=== PATIENT | female | born 1965 | race Caucasian/White ===

== ENCOUNTER 2018-06-20 13:34 | Observation (INO) | payer OTHER ==
--- NOTE | 2018-06-20 14:54 | ED ---
Chest Pain HPI - General Chief Complaint: Chest Pain Stated Complaint: Chest Pain Time Seen by Provider: 06/20/18 14:25 Source: patient, RN notes reviewed Mode of arrival: wheelchair Limitations: no limitations - History of Present Illness Initial Comments: This is a 53-year-old female who presents to the emergency department chief complaint chest pain. Patient states that she's been experiencing chest pain since last Tuesday. She states that she felt the chest pain when she became very upset. Patient states that she has had chest pain in the past and was told to follow-up with a jack machine operator but has yet to do so. She states that when she was going to follow-up, "it blew up in my house." She states that she has been dealing with life stressors generalized. Patient reports that the chest pain begins in the left side of her back and wraps around. She states that at first it was intermittent but has now become steady. She describes the pain as sharp. She also admits to associated shortness of breath. Patient is a current, every day smoker. She states that she has also felt nauseous. Denies abdominal pain, vomiting, diarrhea or constipation, dysuria or hematuria. - Related Data Home Medications Medication Instructions Recorded Confirmed FLUoxetine HCL [PROzac] 60 mg PO DAILY 09/19/15 06/20/18 Hydrochlorothiazide 25 mg PO DAILY 09/19/15 06/20/18 Lisinopril [Zestril] 10 mg PO DAILY 09/19/15 06/20/18 Potassium Chloride [Klor-Con 10 meq PO DAILY 09/19/15 06/20/18 Sprinkle] ALPRAZolam [Xanax] 0.25 mg PO Q6HR PRN 06/20/18 06/20/18 Folic Acid 1 mg PO DAILY 06/20/18 06/20/18 Gabapentin [Neurontin] 300 mg PO HS 06/20/18 06/20/18 Morphine Sulfate 15 mg PO QID PRN 06/20/18 06/20/18 Nitroglycerin 0.4 mg SL Q5M PRN 06/20/18 06/20/18 rOPINIRole HCL 0.5 mg PO BID 06/20/18 06/20/18 Allergies Allergy/AdvReac Type Severity Reaction Status Date / Time Penicillins AdvReac Unknown Verified 07/31/18 15:18 Review of Systems ROS Statement: Those systems with pertinent positive or pertinent negative responses have been documented in the HPI. ROS Other: All systems not noted in ROS Statement are negative. EKG Findings - EKG Comments: EKG Findings:: 14:21:58. Normal sinus rhythm. ST and T wave abnormality, consider anterolateral ischemia. Prolonged QT. Ventricular rate 90 bpm, OK interval 208, QRS duration 80, QT/QTC 380/464 Past Medical History Past Medical History: Hypertension, Thyroid Disorder History of Any Multi-Drug Resistant Organisms: None Reported Past Surgical History: Cholecystectomy Past Psychological History: Depression Smoking Status: Current every day smoker Past Alcohol Use History: None Reported Past Drug Use History: None Reported General Exam - General Exam Comments Initial Comments: General: Awake and alert, well-developed; in no apparent distress. Morbidly obese, disheveled female who looks older than stated age lying comfortably on ED stretcher. HEENT: Head atraumatic, normocephalic. Pupils are equal, round and reactive to light. Extraocular movements intact. Oropharynx moist without erythema or exudate. Neck: Supple. Normal ROM. Cardiovascular: Regular rate and rhythm. No murmurs, rubs or gallops. Chest symmetrical. Respiratory: Wheezes noted left lung base. No rhonchi or rales. Normal respiratory effort with no use of accessory muscles. Abdomen: Soft, non-tender, non-distended. No rigidity, rebound or guarding. Normal bowel sounds in all 4 quadrants. Musculoskeletal: Normal ROM, no tenderness bilateral upper and lower extremities. Skin: Sena, warm and dry without rashes or lesions. Neurological: Alert and oriented x3. CN II-XII grossly intact. Speech is fluent and answers are appropriate. No focal neuro deficits. Psychiatric: Normal mood and affect. No overt signs of depression or anxiety noted. Limitations: no limitations Course Vital Signs 06/20/18 06/20/18 13:36 15:47 Temperature 97.7 F Pulse Rate 89 88 Respiratory 20 20 Rate Blood Pressure 130/83 153/72 O2 Sat by Pulse 97 94 L Oximetry Chest Pain MDM - MDM This is a 53-year-old female who presents to the emergency department with chief complaint of chest pain. Patient reports chest pain for the past 6 days. She states that it comes and goes but has become more steady. EKG revealed normal sinus rhythm with ischemic changes noted. There is T-wave inversion in V1 through V3 and ST segment depression in V4 through V6. This is new compared to EKG in 2015. Patient will be admitted for ischemic changes, unstable angina. Troponin is negative at 0.018. CBC unremarkable. Potassium is decreased to 3.3. Patient given oral supplementation. Chest x-ray revealed no acute cardiopulmonary processes. It did reveal evidence for COPD. Patient will be admitted for new acute ischemic EKG changes and chest pain. She'll be admitted to Dr. Baker with consult to Dr. Shrestha. Echocardiogram is ordered. Patient started on low intensity heparin. Patient is in agreement for admission. She is in no acute distress. Chest x-ray impression: No acute process. Correlate for COPD. Disposition Clinical Impression: Chest pain, Acute electrocardiogram changes Disposition: ADMITTED IP TO THIS HOSP Condition: Good Is patient prescribed a controlled substance at d/c from ED?: No Referrals: Dustin Quevedo MD [Primary Care Provider] - 1-2 days Time of Disposition: 16:19
[2018-06-20 14:58] LABS: Basophils % (A) 0 %; Eosinophils % (A) 0 %; HCT 46.4 % (34.0-46.0); HGB 15.6 gm/dL (11.4-16.0); Lymphocytes % (A) 16 %; MCH 31.9 pg (25.0-35.0); MCHC 33.5 g/dL (31.0-37.0); MCV 95.1 fL (80.0-100.0); Mean Platelet Volume 7.1; Monocytes # (A) 0.3 k/uL (0-1.0); Monocytes % (A) 4 %; Neutrophils # (A) 4.9 k/uL (1.3-7.7); Neutrophils % (A) 78 %; Platelet Count 246 k/uL (150-450); RBC 4.88 m/uL (3.80-5.40); RDW 13.4 % (11.5-15.5); WBC 6.2 k/uL (3.8-10.6)
[2018-06-20 15:07] LABS: Albumin 4.1 g/dL (3.5-5.0); Calcium 10.2 mg/dL (8.4-10.2); Magnesium 1.4 mg/dL (1.6-2.3); Potassium 3.2 mmol/L (3.5-5.1); Total Bilirubin 0.6 mg/dL (0.2-1.3); Total Protein 7.2 g/dL (6.3-8.2)
--- NOTE | 2018-06-20 15:17 | XR ---
EXAMINATION TYPE: XR chest 2V DATE OF EXAM: 06/20/2018 COMPARISON: 09/19/2015 TECHNIQUE: PA and lateral views submitted. HISTORY: Chest pain FINDINGS: The lungs are clear and there is no pneumothorax, pleural effusion, or focal pneumonia. Cardiomegal y noted. Hyperinflation suggests COPD. Hypertrophic and degenerative change of the spine. No overt fa ilure. Chronic appearing rib deformities on the right. IMPRESSION: 1. No acute process. Correlate for COPD.
[2018-06-20 15:21] LABS: Partial Thromboplastin Time 23.7 sec (22.0-30.0)
[2018-06-20 15:30] LABS: Creatine Kinase MB 1.3 ng/mL (0.0-2.4); Troponin I 0.018 ng/mL (0.000-0.034)
[2018-06-20] MEDS ORDERED: POTASSIUM CHLORIDE ER 20 MEQ TAB.ER PO STA (15:37)
[2018-06-20] MEDS ORDERED: HEPARIN SODIUM,PORCINE 5,000 UNIT/ML 1 ML VIAL IV PRN (16:03)
[2018-06-20] MEDS ORDERED: HEPARIN SODIUM,PORCINE 5,000 UNIT/ML 1 ML VIAL IV ONE (16:03)
[2018-06-20] MEDS ORDERED: NITROGLYCERIN SL TABS 0.4 MG TAB SUBLINGUAL PRN (16:04)
[2018-06-20] MEDS ORDERED: HEPARIN SOD,PORK IN 0.45% NACL 25,000 UNIT in 0.45% NACL 1 500ML.BAG IV SCH (16:15)
[2018-06-20] MEDS ORDERED: MORPHINE SULFATE 2 MG/ML SYRINGE IVP STA (16:16)
[2018-06-20] MEDS ORDERED: NITROGLYCERIN SL TABS 0.4 MG TAB SUBLINGUAL STA (16:16)
[2018-06-20] MEDS: SODIUM CHLORIDE 0.9% 1,000 ML IV SCH (16:20)
--- NOTE | 2018-06-20 17:31 | CT ---
EXAMINATION TYPE: CT angio chest DATE OF EXAM: 06/20/2018 COMPARISON: NONE HISTORY: chest pain CT DLP: 793.7 mGycm. Automated Exposure Control for Dose Reduction was Utilized. CONTRAST: CTA scan of the thorax is performed with IV Contrast, patient injected with 100 mL of Isovue 370, pul monary embolism protocol. MIP Images are created on CT scanner and reviewed. FINDINGS: LUNGS: There is mild background centrilobular and paraseptal emphysematous change. Respiratory artifa ct is seen at the lung bases limiting evaluation for pulmonary nodule. No pneumothorax or pleural eff usion is identified. No discrete pulmonary mass. Te lungs are grossly clear, there is no concerning p arenchymal mass or nodule identified. There is no pleural effusion or pneumothorax seen. The trach eobronchial tree is patent. MEDIASTINUM: There is satisfactory enhancement of the main, segmental, and proximal subsegmental pulm onary arteries, there is no CT evidence for pulmonary embolism within these vessels. There is limitat ion of the more distal subsegmental pulmonary arteries due to mixing of contrast. There is no evidenc e of right heart strain There are no greater than 1 cm hilar or mediastinal lymph nodes. No cardiom egaly or pericardial effusion is seen. Ascending thoracic aorta is within normal limits of size measu ring 3.5 cm. OTHER: Cholecystectomy clips are noted within the gallbladder fossa. Generalized low attenuation of t he visualized hepatic parenchyma suggests underlying hepatic steatosis. Old healed right posterior ri b fractures are well-healed. Moderate multilevel degenerative change of the spine IMPRESSION: 1. No evidence of pulmonary embolism. There is slight limitation of the distal aspect of the subsegme ntal pulmonary arteries due to mixing of contrast. 2. Mild background centrilobular and paraseptal emphysema. 3. Old healed posterior right rib fractures.
[2018-06-20] MEDS: MAGNESIUM SULFATE-D5W PMX 1 GM in DEXTROSE/WATER 1 100ML.BAG IVPB SCH ×2 (21:04→22:24)
[2018-06-20] MEDS ORDERED: ALPRAZolam 0.25 MG TAB PO PRN (21:20)
[2018-06-20] MEDS: MORPHINE SULFATE IR 15 MG TABLET PO PRN (22:25)
[2018-06-20] MEDS: GABAPENTIN 300 MG CAP PO SCH (22:25)
[2018-06-20 22:36] LABS: Creatine Kinase MB 1.4 ng/mL (0.0-2.4); Troponin I 0.021 ng/mL (0.000-0.034)
[2018-06-21] MEDS: SODIUM CHLORIDE 0.9% 1,000 ML IV SCH ×2 (06:18→09:30)
[2018-06-21 06:53] LABS: Basophils % (A) 0 %; Eosinophils % (A) 0 %; HCT 40.9 % (34.0-46.0); HGB 13.5 gm/dL (11.4-16.0); Lymphocytes # (A) 1.9 k/uL (1.0-4.8); Lymphocytes % (A) 31 %; MCH 30.9 pg (25.0-35.0); MCV 93.8 fL (80.0-100.0); Mean Platelet Volume 7.6; Monocytes # (A) 0.5 k/uL (0-1.0); Monocytes % (A) 9 %; Neutrophils # (A) 3.4 k/uL (1.3-7.7); Neutrophils % (A) 56 %; Platelet Count 208 k/uL (150-450); RBC 4.37 m/uL (3.80-5.40); RDW 13.3 % (11.5-15.5)
--- NOTE | 2018-06-21 08:45 | P.CRDCN ---
History of Present Illness Consult date: 06/21/18 Requesting physician: Vanessa Baker Consult reason: chest pain Chief complaint: Chest pain History of present illness: This is a pleasant 53-year-old female with history of hypertension, obesity, nicotine dependence, COPD, who presents to the hospital with symptoms of chest discomfort. According to the patient she's been under a considerable amount of stress at home, she states she's been experiencing chest heaviness and also sharp chest pains seeded shortness of breath and diaphoresis for over a week off and on. She states that mostly a stressful situation seemed to bring it on. She denies any diabetes or hyperlipidemia, she does have a family history of premature coronary artery disease and her sister is status post coronary artery bypass grafting surgery. EKG on arrival here showed a normal sinus rhythm with ST-T wave changes noted in the anterior lateral leads, subsequent EKG performed this morning shows normal sinus rhythm with ST-T wave changes noted primarily in the anterior leads. Chest x-ray on admission did not reveal any acute process, COPD is suggested. CTA of the chest was performed which did not reveal any evidence of a pulmonary embolism. Old healed posterior right rib fractures noted. Blood pressure on admission 130/80 , heart rate in the 80s, 97% on room air. Laboratory data White blood cell count 6.0, hemoglobin 13.5, platelet count 208. D-dimer 1.63. Sodium 132, potassium 3.0, BUN 9, creatinine 0.9. Magnesium on admission 1.4, 2.0 this morning. Initial troponin 0.018, subsequent troponin 0.021. At the time of my examination this morning, patient complains of back discomfort, she denies any further chest discomfort. 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 History of Any Multi-Drug Resistant Organisms: None Reported Past Surgical History: Cholecystectomy Past Psychological History: Depression Smoking Status: Current every day smoker Past Alcohol Use History: None Reported Past Drug Use History: None Reported Medications and Allergies Home Medications Medication Instructions Recorded Confirmed Type FLUoxetine HCL [PROzac] 60 mg PO DAILY 09/19/15 06/20/18 History Hydrochlorothiazide 25 mg PO DAILY 09/19/15 06/20/18 History Lisinopril [Zestril] 10 mg PO DAILY 09/19/15 06/20/18 History Potassium Chloride [Klor-Con 10 meq PO DAILY 09/19/15 06/20/18 History Sprinkle] ALPRAZolam [Xanax] 0.25 mg PO Q6HR PRN 06/20/18 06/20/18 History Folic Acid 1 mg PO DAILY 06/20/18 06/20/18 History Gabapentin [Neurontin] 300 mg PO HS 06/20/18 06/20/18 History Morphine Sulfate 15 mg PO QID PRN 06/20/18 06/20/18 History Nitroglycerin 0.4 mg SL Q5M PRN 06/20/18 06/20/18 History rOPINIRole HCL 0.5 mg PO BID 06/20/18 06/20/18 History Allergies Allergy/AdvReac Type Severity Reaction Status Date / Time Penicillins AdvReac Unknown Verified 06/20/18 15:18 Physical Exam Vitals: Vital Signs Temp Pulse Pulse Resp BP BP Pulse Ox 06/21/18 04:00 98.2 F 74 18 100/55 94 L 06/21/18 00:00 98.3 F 79 20 110/63 94 L 06/20/18 20:00 97.4 F L 91 22 149/89 96 06/20/18 17:53 98.2 F 90 22 179/81 95 06/20/18 16:25 105 H 22 149/86 93 L 06/20/18 15:47 88 20 153/72 94 L 06/20/18 13:36 97.7 F 89 20 130/83 97 Intake and Output 06/20/18 06/21/18 06/21/18 22:59 06:59 14:59 Intake Total 117.667 750 Balance 117.667 750 Intake: IV 750 Sodium Chloride 0.9% 1, 750 000 ml @ 75 mls/hr IV . [id number] MEET Rx#:[id number] Intake, IV Titration 117.667 Amount Heparin Sod,Pork in 0.45% 117.667 NaCl 25,000 unit In 0.45 % NaCl 1 500ml.bag @ 5.88 UNITS/KG/HR 20 mls/hr IV .Q24H MEET Rx#:[id number] Other: Voiding Method Toilet Toilet Bedside Commode # Voids 0 Weight 164.9 kg 165 kg PHYSICAL EXAMINATION: GENERAL: 53-year-old disheveled female in no acute distress at the time of my examination HEENT: Head is atraumatic, normocephalic. Several broken teeth noted Pupils equal, round. Sclera anicteric. Conjunctiva are clear. Mucous membranes of the mouth are moist. Neck is supple. There is no elevated jugular venous pressure. No carotid bruit is heard. HEART EXAMINATION: Heart S1-S2 distant CHEST EXAMINATION:'s reveal scattered coarse wheezing throughout with decreased air exchange ABDOMEN: Soft, obese, nontender. Bowel sounds are heard. No organomegaly noted. EXTREMITIES: 2+ peripheral pulses with no evidence of peripheral edema and no calf tenderness noted. NEUROLOGIC patient is awake, alert and oriented X3 . Results 06/21/18 06:19 06/21/18 06:19 Cardiac Enzymes 06/20/18 06/20/18 06/20/18 Range/Units 14:46 14:46 21:24 AST 27 (14-36) U/L CK-MB (CK-2) 1.3 1.4 (0.0-2.4) ng/mL Troponin I 0.018 0.021 (0.000-0.034) ng/mL Coagulation 06/20/18 06/20/18 06/21/18 Range/Units 14:46 21:24 06:19 PT 10.0 (9.0-12.0) sec APTT 23.7 28.0 39.7 H (22.0-30.0) sec Lipids 06/21/18 Range/Units 06:19 Triglycerides 84 (<150) mg/dL Cholesterol 132 (<200) mg/dL HDL Cholesterol 78 H (40-60) mg/dL CBC 06/20/18 06/21/18 Range/Units 14:46 06:19 WBC 6.2 6.0 (3.8-10.6) k/uL RBC 4.88 4.37 (3.80-5.40) m/uL Hgb 15.6 13.5 (11.4-16.0) gm/dL Hct 46.4 H 40.9 (34.0-46.0) % Plt Count 246 208 (150-450) k/uL Comprehensive Metabolic Panel 06/20/18 06/21/18 Range/Units 14:46 06:19 Sodium 132 L (137-145) mmol/L Potassium 3.2 L 3.0 L* (3.5-5.1) mmol/L Chloride 93 L (98-107) mmol/L Carbon Dioxide 30 (22-30) mmol/L BUN 9 (7-17) mg/dL Creatinine 0.91 (0.52-1.04) mg/dL Glucose 121 H (74-99) mg/dL Calcium 10.2 (8.4-10.2) mg/dL AST 27 (14-36) U/L ALT 23 (9-52) U/L Alkaline Phosphatase 94 (38-126) U/L Total Protein 7.2 (6.3-8.2) g/dL Albumin 4.1 (3.5-5.0) g/dL Current Medications Generic Name Dose Route Start Last Admin Trade Name Freq PRN Reason Stop Dose Admin Alprazolam 0.25 mg 06/20/18 21:20 Xanax PO Q6HR PRN Anxiety Aspirin 325 mg 06/21/18 09:00 Aspirin PO DAILY [facility] Fluoxetine HCl 60 mg 06/21/18 09:00 Prozac PO DAILY [facility] Folic Acid 1 mg 06/21/18 12:00 Folic Acid PO 1200 [facility] Gabapentin 300 mg 06/20/18 21:30 06/20/18 22:25 Neurontin PO 300 mg HS MEET Administration Heparin Sodium (Porcine) 0 unit 06/20/18 16:03 Heparin IV PER PROTOCOL PRN Low PTT Protocol Hydrochlorothiazide 25 mg 06/21/18 09:00 Hydrodiuril PO DAILY [facility] Heparin Sodium/Sodium Chloride 500 mls @ 20 mls/hr 06/20/18 16:15 06/20/18 22 :27 25,000 unit/ Sodium Chloride IV 8.88 units/kg/hr .Q24H MEET 30.2 mls/hr Titration Protocol 5.88 UNITS/KG/HR Sodium Chloride 1,000 mls @ 75 mls/hr 06/20/18 16:15 06/21/18 06:18 Saline 0.9% IV Not Given .[id number] [facility] Lisinopril 10 mg 06/21/18 09:00 Zestril PO DAILY [facility] Morphine Sulfate 15 mg 06/20/18 21:20 06/20/18 22:25 Msir PO 15 mg QID PRN Administration Pain Nitroglycerin 0.4 mg 06/20/18 16:04 Nitrostat SUBLINGUAL Q5M PRN Chest Pain Ropinirole HCl 0.5 mg 06/20/18 21:30 06/20/18 22:25 Requip PO 0.5 mg BID MEET Administration Intake and Output 06/20/18 06/21/18 06/21/18 22:59 06:59 14:59 Intake Total 117.667 750 Balance 117.667 750 Intake: IV 750 Sodium Chloride 0.9% 1, 750 000 ml @ 75 mls/hr IV . [id number] MEET Rx#:[id number] Intake, IV Titration 117.667 Amount Heparin Sod,Pork in 0.45% 117.667 NaCl 25,000 unit In 0.45 % NaCl 1 500ml.bag @ 5.88 UNITS/KG/HR 20 mls/hr IV .Q24H MEET Rx#:[id number] Other: Voiding Method Toilet Toilet Bedside Commode # Voids 0 Weight 164.9 kg 165 kg 06/21/18 06:19 06/21/18 06:19 EKG Interpretations (text) EKG shows a normal sinus rhythm with ST-T wave changes noted in the anterior lateral leads. Assessment and Plan Plan: Assessment and plan #1 chest discomfort, rule out acute coronary syndrome. Initial troponin 0.018, subsequent troponin 0.0-1. EKG shows a normal sinus rhythm with anterior lateral ST-T wave changes. CTA of the chest negative for pulmonary embolism #2 hypertension #3 nicotine dependence #4 COPD #5 family history of premature coronary artery disease in her sister who had coronary artery bypass grafting surgery #6 hypokalemia #7 hypomagnesemia Plan We will obtain an echocardiogram with Doppler study, replace potassium. Obtain third troponin value. Patient has also been advised that she may need to undergo further testing to rule out underlying coronary artery disease. Further recommendations to follow. DNP note has been reviewed, I agree with a documented findings and plan of care. Patient was seen and examined.
--- NOTE | 2018-06-21 09:12 | ECHOF ---
Referral Reason:chest pain MEASUREMENTS -------- HEIGHT: 182.9 cm WEIGHT: 170.1 kg BP: 153/72 IVSd: 1.2 cm (0.6 - 1.1) LVIDd: 4.1 cm (3.9 - 5.3) LVPWd: 1.2 cm (0.6 - 1.1) IVSs: 1.5 cm LVIDs: 2.5 cm LVPWs: 1.4 cm MV E Torrey: 0.66 m/s MV DecT: 334 ms MV A Torrey: 0.90 m/s MV E/A Ratio: 0.74 FINDINGS -------- Sinus rhythm. This was a technically difficult study with suboptimal views. The left ventricular size is normal. There is mild concentric left ventricular hypertrophy. Overa ll left ventricular systolic function is normal with, an EF between 55 - 60 %. The RV was not well visualized. The left atrium was not well visualized. The right atrium was not well visualized. 5ml of Lumason was utilized for enhancement of images. The aortic valve was not well visualized. No significant aortic stenosis or regurgitation visualize d. The mitral valve was not well visualized. There is trace to mild mitral regurgitation. The tricuspid valve was not well visualized. The pulmonic valve was not well visualized. Aortic root not well visulized. IVC Not well visulized. There is no pericardial effusion. CONCLUSIONS -------- 1. Sinus rhythm. 2. This was a technically difficult study with suboptimal views. 3. The left ventricular size is normal. 4. There is mild concentric left ventricular hypertrophy. 5. Overall left ventricular systolic function is normal with, an EF between 55 - 60 %. 6. The RV was not well visualized. 7. The left atrium was not well visualized. 8. The right atrium was not well visualized. 9. 5ml of Lumason was utilized for enhancement of images. 10. The aortic valve was not well visualized. 11. No significant aortic stenosis or regurgitation visualized. 12. The mitral valve was not well visualized. 13. There is trace to mild mitral regurgitation. 14. The tricuspid valve was not well visualized. 15. The pulmonic valve was not well visualized. 16. Aortic root not well visulized. 17. IVC Not well visulized. 18. There is no pericardial effusion. SCIENTIFIC AFFAIRS MANAGER: Cecil Dimas RDCS
[2018-06-21] MEDS: LISINOPRIL 10 MG TAB PO SCH (09:29)
[2018-06-21] MEDS: ASPIRIN 325 MG TAB PO SCH (09:29)
[2018-06-21] MEDS: POTASSIUM CHLORIDE ER 20 MEQ TAB.ER PO SCH ×2 (09:29→11:30)
[2018-06-21] MEDS: HYDROCHLOROTHIAZIDE 25 MG TAB PO SCH (09:29)
[2018-06-21] MEDS: FLUoxetine HCL 20 MG CAP PO SCH (09:30)
[2018-06-21] MEDS: MORPHINE SULFATE IR 15 MG TABLET PO PRN ×2 (09:30→18:07)
[2018-06-21] MEDS ORDERED: SODIUM CHLORIDE 0.9% 1,000 ML in EMPTY BAG 1 BAG IV ONE (10:37)
[2018-06-21] MEDS ORDERED: NITROGLYCERIN SL TABS 0.4 MG TAB SUBLINGUAL PRN (10:37)
[2018-06-21] MEDS ORDERED: ALPRAZolam 0.25 MG TAB PO PRN (10:37)
[2018-06-21] MEDS ORDERED: ATORVASTATIN 80 MG TAB PO STA (10:37)
[2018-06-21] MEDS ORDERED: ALPRAZolam 0.5 MG TAB PO PRN (10:37)
[2018-06-21] MEDS ORDERED: ASPIRIN 325 MG TAB PO STA (10:37)
--- NOTE | 2018-06-21 10:41 | P.PN ---
Progress Note - Text This is an addendum to the dictated cardiology consultation. The patient has a history of hypertension, chronic tobacco use and a family history of CAD who presents with symptoms of chest discomfort at times was physical activity and at times with mental stress. She has been under increased amount of stress. She has significant dyspnea on exertion, dizziness. She has no prior documented history of CAD. Her physical examination shows no evidence of rales or peripheral edema. She has no significant murmur and she is obese. Her EKG shows sinus mechanism with ST segment changes cannot exclude ischemia, her troponins are within normal range. Chest of chest discomfort with EKG abnormalities of unknown duration. In view of her symptoms, risk factors I have recommended to proceed with cardiac catheterization. The risks and the complications were discussed with the patient who is in full understanding and agreement. Thank you for this consult we will follow with you.
[2018-06-21] MEDS ORDERED: diphenhydrAMINE 50 MG/ML 1 ML VIAL ONE (12:37)
[2018-06-21] MEDS ORDERED: fentaNYL (PF) 50 MCG/ML 2 ML AMP ONE (12:37)
[2018-06-21] MEDS ORDERED: LIDOCAINE 1% INJ 10MG/ML (20 ML MDV) ONE (12:37)
[2018-06-21] MEDS ORDERED: VERAPAMIL 2.5 MG/ML 2 ML AMP ONE (12:40)
[2018-06-21] MEDS ORDERED: MIDAZOLAM 2 MG/2 ML VIAL ONE (12:55)
[2018-06-21] MEDS ORDERED: LIDOCAINE 1% INJ 10MG/ML (20 ML MDV) SQ ONE ×2 (12:56)
[2018-06-21] MEDS ORDERED: diphenhydrAMINE 50 MG/ML 1 ML VIAL IVP ONE (12:58)
[2018-06-21] MEDS ORDERED: MIDAZOLAM 2 MG/2 ML VIAL IVP ONE (12:58)
[2018-06-21] MEDS ORDERED: VERAPAMIL SYRINGE (5 MG/10 ML) INTRACORON ONE (12:58)
[2018-06-21] MEDS ORDERED: fentaNYL (PF) 50 MCG/ML 2 ML AMP IVP ONE (12:59)
[2018-06-21] MEDS ORDERED: HEPARIN SODIUM 1,000 UN/ML (10ML VL) IV ONE (13:04)
[2018-06-21] MEDS ORDERED: IV FLUID CONTINUATION 900 ML IV ONE (13:04)
[2018-06-21] MEDS ORDERED: IOPAMIDOL-370 125ML BTL INJ ONE (13:05)
[2018-06-21] MEDS ORDERED: RX INFO: IV CONTRAST WAS GIVEN 1 EACH MISC MISCELLANE PRN (13:17)
[2018-06-21] MEDS ORDERED: SODIUM CHLORIDE 0.9% 1,000 ML IV SCH (13:30)
[2018-06-21] MEDS: FOLIC ACID 1 MG TAB PO SCH (13:34)
[2018-06-21] MEDS: POTASSIUM CHLORIDE 10 MEQ in WATER FOR INJECTION 1 100ML.BAG IVPB SCH ×2 (13:59→15:52)
--- NOTE | 2018-06-21 14:30 | CC ---
CARDIAC CATHETERIZATION REPORT Mrs. Kang is a 53-year-old female with no prior documented coronary artery disease who presented with symptoms of chest discomfort, some of the discomfort is exertion pattern. She has history of hypertension, chronic tobacco use and a family history of premature coronary artery disease and her EKG revealed T-wave inversion anteriorly. The patient has no enzymatic changes. Because of her symptoms and her presentation, recommendation was made regarding cardiac catheterization. The procedures, risks and complications were discussed with the patient who is in full understanding and agreement. PROCEDURE: Patient was brought to the biology laboratory assistant in a fasting semi-sedated state after receiving fentanyl and Benadryl and achieving moderate conscious sedated state. Using Xylocaine anesthesia and Seldinger technique, a 6-Montserratian sheath was introduced in the right radial artery. Selective right and left angiography were performed using 5-Montserratian 3.5 bend right and left Genoveva catheter in multiple views of the coronary artery including hemiaxial views obtained. Following that, 5-Montserratian tight pigtail catheter was introduced in the left ventricle and a 30 degree ANDERS view of the left ventricle was obtained. Following that, catheter and sheath were removed, hemostasis was obtained with deployment of a TR band. There was no immediate complication. Patient is returned to her room in stable condition. Of note, patient received 5000 units of intravenous heparin as well as intra-arterial verapamil. FINDINGS: LEFT MAIN: This is a large-sized vessel, bifurcating into left circumflex, left anterior descending artery. Left main coronary artery has no evidence of high-grade stenosis. LEFT ANTERIOR DESCENDING ARTERY: This is a large-sized vessel, reaching toward the apex with a wraparound apex segment giving rise to a large diagonal branch proximally. The LAD and its branches have no evidence of obstructive coronary artery disease. LEFT CIRCUMFLEX: This is a nondominant vessel, giving rise to a large obtuse marginal branch. The left circumflex as well as branches have no evidence of obstructive coronary artery disease. RIGHT CORONARY ARTERY: This is a large dominant vessel, bifurcating distally into PDA and posterolateral segment branches. The right coronary artery as well as its branches, have no evidence of obstructive coronary artery disease. LEFT VENTRICULOGRAM: Left ventriculogram is performed in 30 degree ANDERS view and reveals normal left ventricular size and systolic function, the ejection fraction is 60%. There was no significant mitral regurgitation. HEMODYNAMICS: There was no gradient across the aortic valve. The left ventricular end- diastolic pressure was 10-12 mmHg. CONCLUSION: 1. Normal coronary arteries. 2. Normal left ventricular size and systolic function. RECOMMENDATION: In view of finding anatomy, I recommend continue medical therapy with aggressive risk modifications being initiated. Those findings and recommendation were discussed with the patient and her family who are in full understanding and agreement. DURATION OF PROCEDURE: 15 minutes. VASYL / FLAVIA: [id number] /
--- NOTE | 2018-06-21 16:17 | P.HPIM ---
History of Present Illness H&P Date: 06/21/18 Chief Complaint: chest pain this will serve both an H&P and discharge summary this is a pleasant 53-year-old lady patient of Dr. Quevedo. She has underlying history of hypertension and COPD hyperlipidemia morbid obesity current tobacco use admitted to the emergency room secondary to chest discomfort for the past 4 days off and on, worse by arguments at home, has increasing stress, patient denies any radiation of the pain towards the neck or the arms, no diaphoresis, the patient currently has cough and wheezing episodes, there is no history for diabetes mellitus or previous [place] but family with premature CAD in the family member, and sister has coronarybypass surgery. in Emergency room she had EKG that shows ST-T wave changes in the anterior leads, sinus rhythm, these are acute changes noted, chest x-ray failed to reveal any acute processes, CTA of the chest was negative for pulmonary emboli, there is old healed fractures in the posterior right rib noted, d-dimer was 1.63 , potassium was 3.0, creatinine of 0.9, initial troponin was 0.18 and 0.21 patient's currently seen with consultations to cardiology acute coronary syndrome, IVheparin and Nitrol sublingual when necessary aspirin. Review of Systems Constitutional: Reports as per HPI, Denies anorexia, Denies chills, Denies chronic headaches, Denies chronic pain, Denies daytime sleepiness, Denies fatigue, Denies fever, Denies lethargy, Denies malaise, Denies night sweats, Denies poor appetite, Denies sweats, Denies weakness, Denies weight gain, Denies weight loss Ears, nose, mouth and throat: Reports as per HPI, Denies ant. neck pain, Denies bleeding gums, Denies dental pain, Denies dysphagia, Denies epistaxis, Denies headache, Denies hoarseness, Denies mouth pain, Denies nasal congestion, Denies nasal discharge, Denies neck fullness/pressure, Denies neck lump, Denies nose pain, Denies odynophagia, Denies post-nasal drip, Denies sinus pain, Denies sinus pressure, Denies swelling in mouth, Denies swelling in throat, Denies sore throat, Denies vertigo, Denies voice changes Cardiovascular: Reports as per HPI, Reports chest pain, Reports decreased exercise tolerance, Reports dyspnea on exertion, Reports shortness of breath Respiratory: Reports as per HPI, Reports cough, Reports wheezing, Denies congestion, Denies cough with sputum, Denies dyspnea, Denies excessive sputum, Denies hemoptysis, Denies home oxygen, Denies pain, Denies pain on inspiration, Denies pleurisy, Denies respiratory infections, Denies sleep apnea, Denies snoring Gastrointestinal: Reports as per HPI Genitourinary: Reports as per HPI, Denies abnormal vaginal bleeding, Denies decreased libido, Denies difficulty conceiving, Denies difficulty voiding, Denies dysmenorrhea, Denies dyspareunia, Denies dysuria, Denies flank pain, Denies genital sores, Denies hematuria, Denies hot flashes, Denies incomplete emptying, Denies kidney stones, Denies menorrhagia, Denies mixed incontinence, Denies nocturia, Denies pelvic pain, Denies post void dribbling, Denies , Denies prolapse symptoms, Denies stress incontinence, Denies urge incontinence , Denies urgency, Denies urinary frequency, Denies vaginal discharge, Denies vaginal dryness, Denies vaginal itching, Denies vaginal odor Menstruation: Reports as per HPI, Denies amenorrhea, Denies amenorrhea on BC, Denies currently menstrual, Denies cycle < 21 days, Denies cycle > 35 days, Denies cycle variable, Denies menses 1-7 days, Denies menses 8 or > days, Denies menses variable, Denies period heavy, Denies period light, Denies period normal, Denies period spotting, Denies post hysterectomy, Denies postmenopausal , Denies premenarcheal Musculoskeletal: Reports as per HPI, Denies arm numbness/tingling, Denies atrophy, Denies fractures, Denies frequent falls, Denies gait dysfunction, Denies hot joints, Denies leg numbness/tingling, Denies limitation of motion, Denies loss of height, Denies low back pain, Denies morning stiffness, Denies muscle cramps, Denies muscle weakness, Denies myalgias, Denies neck pain, Denies neck stiffness, Denies prior amputations, Denies redness of joints, Denies shooting arm pain, Denies shooting leg pain Integumentary: Reports as per HPI Neurological: Reports as per HPI, Denies aphasia, Denies ataxia, Denies balance difficulties, Denies burning pain, Denies change in mentation, Denies change in smell/taste, Denies change in speech, Denies confusion, Denies convulsions, Denies double vision, Denies gait dysfunction, Denies head injury, Denies headaches, Denies hearing difficulties, Denies lack of coordination, Denies loss of vision, Denies memory loss, Denies migraines, Denies motor disturbance, Denies numbness, Denies paralysis, Denies paresthesias, Denies seizures, Denies sensory deficit, Denies spasticity, Denies syncope, Denies tic, Denies tingling , Denies transient paralysis, Denies tremors, Denies vertigo, Denies weakness, Denies visual changes Psychiatric: Reports as per HPI Endocrine: Reports as per HPI Hematologic/Lymphatic: Reports as per HPI Allergic/Immunologic: Reports as per HPI Past Medical History Past Medical History: Hypertension, Thyroid Disorder Additional Past Medical History / Comment(s): 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 History of Any Multi-Drug Resistant Organisms: None Reported Past Surgical History: Cholecystectomy Past Psychological History: Depression Smoking Status: Current every day smoker Past Alcohol Use History: None Reported Past Drug Use History: None Reported - Past Family History Father History Unknown: Yes (diseased with alcoholic liver disease cirrhosis) Mother History Unknown: Yes (acquired kidney failure) Brother(s) History Unknown: Yes (CHF CK D stage III, one brother from HIV) Sister(s) History Unknown: Yes (CABG at age 67, CK D) Family Medical History: Coronary Artery Disease (CAD) Daughter(s) Family Medical History: Unable to Obtain (no daughter no sons) Medications and Allergies Home Medications Medication Instructions Recorded Confirmed Type Hydrochlorothiazide 25 mg PO DAILY 09/19/15 06/20/18 History Lisinopril [Zestril] 10 mg PO DAILY 09/19/15 06/20/18 History Potassium Chloride [Klor-Con 10 meq PO DAILY 09/19/15 06/20/18 History Sprinkle] ALPRAZolam [Xanax] 0.25 mg PO Q6HR PRN 06/20/18 06/20/18 History Folic Acid 1 mg PO DAILY 06/20/18 06/20/18 History Gabapentin [Neurontin] 300 mg PO HS 06/20/18 06/20/18 History Morphine Sulfate 15 mg PO QID PRN 06/20/18 06/20/18 History Nitroglycerin 0.4 mg SL Q5M PRN 06/20/18 06/20/18 History rOPINIRole HCL 0.5 mg PO BID 06/20/18 06/20/18 History Aspirin EC [Ecotrin Low Dose] 81 mg PO DAILY #30 tablet.dr 06/21/18 Rx Budesonide-Formot 160-4.5 Mcg 2 puff INHALATION BID #1 inhaler 06/21/18 Rx [Symbicort 160-4.5 Mcg Inhaler] Levofloxacin [Levaquin] 500 mg PO DAILY #7 tab 06/21/18 Rx predniSONE 0 mg PO DIRECTED #45 tab 06/21/18 Rx FLUoxetine HCL [PROzac] 80 mg PO DAILY #60 cap 06/22/18 Rx Allergies Allergy/AdvReac Type Severity Reaction Status Date / Time Penicillins AdvReac Unknown Verified 06/20/18 15:18 Physical Exam Vitals: Vital Signs Temp Pulse Pulse Pulse Resp BP BP 06/21/18 15:49 76 16 138/74 06/21/18 15:15 96/54 06/21/18 14:15 77 109/62 06/21/18 14:00 69 142/62 06/21/18 13:45 18 157/62 06/21/18 13:30 20 129/64 06/21/18 12:00 18 06/21/18 11:44 73 18 147/67 06/21/18 09:00 97.1 F L 75 20 149/66 06/21/18 04:00 98.2 F 74 18 100/55 06/21/18 00:00 98.3 F 79 20 110/63 06/20/18 20:00 97.4 F L 91 22 149/89 06/20/18 17:53 98.2 F 90 22 179/81 06/20/18 16:25 105 H 22 149/86 Pulse Ox 06/21/18 15:49 93 L 06/21/18 15:15 06/21/18 14:15 06/21/18 14:00 06/21/18 13:45 93 L 06/21/18 13:30 94 L 06/21/18 12:00 06/21/18 11:44 93 L 06/21/18 09:00 92 L 06/21/18 04:00 94 L 06/21/18 00:00 94 L 06/20/18 20:00 96 06/20/18 17:53 95 06/20/18 16:25 93 L Intake and Output 06/21/18 06/21/18 06/21/18 06:59 14:59 22:59 Intake Total 750 707.333 Balance 750 707.333 Intake: IV 750 325 Sodium Chloride 0.9% 1, 750 225 000 ml @ 75 mls/hr IV . [id number] MEET Rx#:[id number] Intake, IV Titration 382.333 Amount Heparin Sod,Pork in 0.45% 382.333 NaCl 25,000 unit In 0.45 % NaCl 1 500ml.bag @ 5.88 UNITS/KG/HR 20 mls/hr IV .Q24H MEET Rx#:[id number] Other: Voiding Method Toilet Bedside Commode Bedside Commode Weight 165 kg - Constitutional General appearance: cooperative, morbidly obese, no acute distress - EENT Eyes: anicteric sclerae, EOMI, PERRLA, dentition normal, normal appearance ENT: NA/AT, normal oropharynx - Neck Neck: normal ROM - Respiratory Respiratory: bilateral: wheezing, negative: CTA, diminished, dullness, rales, prolonged expiration, prolonged inspiration - Cardiovascular Rhythm: regular Heart sounds: normal: S1, S2 Abnormal Heart Sounds: no systolic murmur, no diastolic murmur, no rub, no S3 Gallop, no S4 Gallop, no click, no other - Gastrointestinal General gastrointestinal: soft - Integumentary Integumentary: decreased turgor, normal - Neurologic Neurologic: CNII-XII intact - Musculoskeletal Musculoskeletal: gait normal - Psychiatric Psychiatric: A&O x's 3, appropriate affect, intact judgment & insight Results CBC & Chem 7: 06/22/18 05:44 06/22/18 05:44 Labs: Abnormal Lab Results - Last 24 Hours (Table) 06/20/18 06/21/18 06/21/18 Range/Units 14:46 06:19 06:19 APTT 39.7 H (22.0-30.0) sec D-Dimer 1.63 H (<0.60) mg/L FEU Potassium (3.5-5.1) mmol/L HDL Cholesterol 78 H (40-60) mg/dL 06/21/18 Range/Units 06:19 APTT (22.0-30.0) sec D-Dimer (<0.60) mg/L FEU Potassium 3.0 L* (3.5-5.1) mmol/L HDL Cholesterol (40-60) mg/dL Laboratory Results WBC 6.0 k/uL (3.8-10.6) 06/21/18 06:19 RBC 4.37 m/uL (3.80-5.40) 06/21/18 06:19 Hgb 13.5 gm/dL (11.4-16.0) 06/21/18 06:19 Hct 40.9 % (34.0-46.0) 06/21/18 06:19 MCV 93.8 fL (80.0-100.0) 06/21/18 06:19 MCH 30.9 pg (25.0-35.0) 06/21/18 06:19 MCHC 33.0 g/dL (31.0-37.0) 06/21/18 06:19 RDW 13.3 % (11.5-15.5) 06/21/18 06:19 Plt Count 208 k/uL (150-450) 06/21/18 06:19 Neutrophils % 56 % 06/21/18 06:19 Lymphocytes % 31 % 06/21/18 06:19 Monocytes % 9 % 06/21/18 06:19 Eosinophils % 0 % 06/21/18 06:19 Basophils % 0 % 06/21/18 06:19 Neutrophils # 3.4 k/uL (1.3-7.7) 06/21/18 06:19 Lymphocytes # 1.9 k/uL (1.0-4.8) 06/21/18 06:19 Monocytes # 0.5 k/uL (0-1.0) 06/21/18 06:19 Eosinophils # 0.0 k/uL (0-0.7) 06/21/18 06:19 Basophils # 0.0 k/uL (0-0.2) 06/21/18 06:19 PT 10.0 sec (9.0-12.0) 06/20/18 14:46 INR 1.0 (<1.2) 06/20/18 14:46 APTT 39.7 sec (22.0-30.0) H 06/21/18 06:19 D-Dimer 1.63 mg/L FEU (<0.60) H 06/20/18 14:46 Sodium 132 mmol/L (137-145) L 06/20/18 14:46 Potassium 3.0 mmol/L (3.5-5.1) L* 06/21/18 06:19 Chloride 93 mmol/L (98-107) L 06/20/18 14:46 Carbon Dioxide 30 mmol/L (22-30) 06/20/18 14:46 Anion Gap 9 mmol/L 06/20/18 14:46 BUN 9 mg/dL (7-17) 06/20/18 14:46 Creatinine 0.91 mg/dL (0.52-1.04) 06/20/18 14:46 Est GFR (CKD-EPI)AfAm 82 (>60 ml/min/1.73 sqM) 06/20/18 14:46 Est GFR (CKD-EPI)NonAf 71 (>60 ml/min/1.73 sqM) 06/20/18 14:46 Glucose 121 mg/dL (74-99) H 06/20/18 14:46 Calcium 10.2 mg/dL (8.4-10.2) 06/20/18 14:46 Magnesium 2.0 mg/dL (1.6-2.3) 06/21/18 06:19 Total Bilirubin 0.6 mg/dL (0.2-1.3) 06/20/18 14:46 AST 27 U/L (14-36) 06/20/18 14:46 ALT 23 U/L (9-52) 06/20/18 14:46 Alkaline Phosphatase 94 U/L (38-126) 06/20/18 14:46 Total Creatine Kinase 114 U/L (30-135) 06/20/18 21:24 CK-MB (CK-2) 1.4 ng/mL (0.0-2.4) 06/20/18 21:24 CK-MB (CK-2) Rel Index 1.2 06/20/18 21:24 Troponin I 0.021 ng/mL (0.000-0.034) 06/20/18 21:24 Total Protein 7.2 g/dL (6.3-8.2) 06/20/18 14:46 Albumin 4.1 g/dL (3.5-5.0) 06/20/18 14:46 Triglycerides 84 mg/dL (<150) 06/21/18 06:19 Cholesterol 132 mg/dL (<200) 06/21/18 06:19 LDL Cholesterol, Calc 37 mg/dL (0-99) 06/21/18 06:19 HDL Cholesterol 78 mg/dL (40-60) H 06/21/18 06:19 Stool Occult Blood Negative (Negative) 06/20/18 22:48 Thrombosis Risk Factor Assmnt - DVT/VTE Prophylaxis DVT/VTE Prophylaxis: Pharmacologic Prophylaxis ordered, Mechanical Prophylaxis ordered - Choose All That Apply Any of the Below Risk Factors Present?: Yes Each Factor Represents 1 point: Age 41-60 years, Obesity (BMI >25) Other Risk Factors: No Other congenital or acquired thrombophilia - If yes, enter type in comment: No Thrombosis Risk Factor Assessment Total Risk Factor Score: 2 Thrombosis Risk Factor Assessment Level: Low Risk Assessment and Plan Plan: 1. Chest pain rule out acute coronary syndrome with abnormal baseline EKG changes, patient will be seen by cardiology, patient was started on IV heparin, and sublingual nitroglycerin when necessary, risk factors will be modified no known history of diabetes mellitus, no known history of previous MIs,lipid studies have been done patient was requested to quit tobacco permanentlyhim a stress reduction techniques along with outpatient counseling will be brought up to his PCP upon discharge, Presales Engineer recommended cardiac cath dr Shrestha for which it was performed 2017showing normal coronaries, normal LV function normal LV size EF 60%, 2. COPD exacerbation history of tobacco use, COPD changes noted on CT A, no pulmonary embolipatient was started on Symbicort on discharge 160/40, 2 puffs twice a day, patient has nebulized albuterol at home can be used at every 4 when necessary, patient declined any refills this time, also was counseled regarding permanent tobacco cessation program, declined nicotine patches. Patient was hesitant regarding the use of prednisone secondary to shortness of breath however this most likely underlying COPD rather than a true ALLERGIC reaction, prednisone 50 mg to be started 3 day tapering program, and will be discharged today. Patient was cleared by cardiology, and COPD would be managed as an outpatient 3. Morbid obesity 4. chronic Pituitary microadenoma activity not know outpatient monitor him for this no current symptoms 5. Chronic pain number this disease with neuropathy alternating sciatica lower extremity right/left, on when necessary morphine followed by for chronic pain and opiates no refills given on discharge 6. Hypokalemia, without any GI losses, replacements given 7. Hypomagnesemia replacements given 8. Tracheobronchitis without purulence Levaquin 500 milligrams daily for 7 days initiated [id number] cough suppressant like once penicillin be obtained disposition stable on discharge Discharge Medication List FLUoxetine HCL [PROzac] 60 mg PO DAILY 09/19/15 [History] Hydrochlorothiazide 25 mg PO DAILY 09/19/15 [History] Lisinopril [Zestril] 10 mg PO DAILY 09/19/15 [History] Potassium Chloride [Klor-Con Sprinkle] 10 meq PO DAILY 09/19/15 [History] ALPRAZolam [Xanax] 0.25 mg PO Q6HR PRN 06/20/18 [History] Folic Acid 1 mg PO DAILY 06/20/18 [History] Gabapentin [Neurontin] 300 mg PO HS 06/20/18 [History] Morphine Sulfate 15 mg PO QID PRN 06/20/18 [History] Nitroglycerin 0.4 mg SL Q5M PRN 06/20/18 [History] rOPINIRole HCL 0.5 mg PO BID 06/20/18 [History] Aspirin EC [Ecotrin Low Dose] 81 mg PO DAILY #30 tablet. 06/21/18 [Rx] Budesonide-Formot 160-4.5 Mcg [Symbicort 160-4.5 Mcg Inhaler] 2 puff INHALATION BID #1 inhaler 06/21/18 [Rx] Levofloxacin [Levaquin] 500 mg PO DAILY #7 tab 06/21/18 [Rx] predniSONE 0 mg PO DIRECTED #45 tab 06/21/18 [Rx] follow-up PCP in 1 week or call PCP earlier for worsening symptoms ER if needed
[2018-06-21] MEDS ORDERED: NICOTINE 14MG/24HR PATCH TRANSDERM SCH (18:15)
[2018-06-21] MEDS: BUDESONIDE 0.5 MG/2 ML NEBU INHALATION SCH (19:55)
[2018-06-21] MEDS: IPRATROPIUM-ALBUTEROL 3 ML NEB INHALATION SCH (19:55)
[2018-06-21] MEDS: methylPREDNISolone SOD SUCCI 125 MG/2 ML VIAL IV SCH (20:24)
[2018-06-21] MEDS: GABAPENTIN 300 MG CAP PO SCH (20:24)
[2018-06-21] MEDS: LEVOFLOXACIN 500 MG TAB PO SCH (20:24)
[2018-06-21 21:00] LABS: Glucose,Whole Blood 121 mg/dL (75-99)
[2018-06-21] MEDS: INSULIN ASPART 100 UNIT/ML 1 ML 10 ML VIAL SQ SCH (22:21)
[2018-06-22] MEDS: IPRATROPIUM-ALBUTEROL 3 ML NEB INHALATION SCH ×3 (00:15→07:41)
[2018-06-22] MEDS: MORPHINE SULFATE IR 15 MG TABLET PO PRN ×2 (00:31→09:15)
[2018-06-22 05:49] LABS: Glucose,Whole Blood 151 mg/dL (75-99)
[2018-06-22 05:55] VITALS: RESP 17; TEMP 97.5
[2018-06-22 06:22] LABS: Basophils % (A) 0 %; Eosinophils % (A) 0 %; HCT 39.3 % (34.0-46.0); HGB 13.2 gm/dL (11.4-16.0); Lymphocytes # (A) 0.4 k/uL (1.0-4.8); Lymphocytes % (A) 11 %; MCH 32.1 pg (25.0-35.0); MCHC 33.5 g/dL (31.0-37.0); MCV 95.8 fL (80.0-100.0); Monocytes # (A) 0.1 k/uL (0-1.0); Monocytes % (A) 3 %; Neutrophils # (A) 2.7 k/uL (1.3-7.7); Neutrophils % (A) 85 %; Platelet Count 179 k/uL (150-450); RBC 4.11 m/uL (3.80-5.40); RDW 13.6 % (11.5-15.5); WBC 3.2 k/uL (3.8-10.6)
[2018-06-22 06:32] LABS: Calcium 9.1 mg/dL (8.4-10.2); Potassium 4.3 mmol/L (3.5-5.1)
[2018-06-22] MEDS: INSULIN ASPART 100 UNIT/ML 1 ML 10 ML VIAL SQ SCH (06:34)
[2018-06-22] MEDS: BUDESONIDE 0.5 MG/2 ML NEBU INHALATION SCH (07:41)
[2018-06-22] MEDS: SODIUM CHLORIDE 0.9% 1,000 ML IV SCH (08:54)
[2018-06-22] MEDS: ASPIRIN 325 MG TAB PO SCH (08:59)
[2018-06-22] MEDS: FLUoxetine HCL 20 MG CAP PO SCH (09:00)
[2018-06-22] MEDS: LEVOFLOXACIN 500 MG TAB PO SCH (09:00)
[2018-06-22] MEDS: FOLIC ACID 1 MG TAB PO SCH (09:00)
[2018-06-22] MEDS: LISINOPRIL 10 MG TAB PO SCH (09:00)
[2018-06-22] MEDS: methylPREDNISolone SOD SUCCI 125 MG/2 ML VIAL IV SCH (09:00)
[2018-06-22] MEDS: HYDROCHLOROTHIAZIDE 25 MG TAB PO SCH (09:01)
[2018-06-22 09:10] VITALS: BP 132/76; PULSE 78
--- NOTE | 2018-06-22 09:16 | PN ---
PROGRESS NOTE Mrs. Kang is a 53-year-old female who presented with symptoms of chest discomfort and mild EKG changes with no enzymatic changes. She underwent cardiac catheterization, revealed no evidence of obstructive coronary artery disease. She is feeling better today. Her breathing is stable. She denies any dizziness or palpitation. She denies any nausea. She continues to be at this time on aspirin once a day, folic acid, hydrochlorothiazide 25 mg daily, lisinopril 10 mg daily, nicotine patch. PHYSICAL EXAMINATION: Blood pressure 104/50 with a heart rate in 70s. LUNGS: Clear. HEART: Regular rate and rhythm. S1, S2. No S3. No rub. ABDOMEN: Soft, obese, nontender. EXTREMITIES: No edema, left radial pulse intact. IMPRESSION: 1. Symptoms of chest pain with no evidence of obstructive coronary artery disease. 2. Chronic tobacco use. 3. Hypertension. RECOMMENDATION: From the cardiac standpoint, she is stable. She should be able to be discharged home today and follow as an outpatient. I discussed with her the importance of smoking cessation. MMODL / IJN: [id number] /
--- NOTE | 2018-06-22 14:00 | P.DS ---
Providers Date of admission: 06/20/18 16:01 Expected date of discharge: 06/22/18 Attending physician: Vanessa Baker Consults: 06/20/18 16:04 Consult Physician Urgent Consulting Provider: Jeromy Shrestha Consult Reason/Comments: chest pain, acute EKG changes Do you want consulting provider notified?: Yes Primary care physician: david [place] Hospital Course: this is a 53-year-old lady patient of Dr. Quevedo. She has underlying history of hypertension and COPD hyperlipidemia morbid obesity current tobacco use admitted to the emergency room secondary to chest discomfort for the past 4 days off and on, worse by arguments at home, has increasing stress, patient denies any radiation of the pain towards the neck or the arms, no diaphoresis, the patient currently has cough and wheezing episodes, there is no history for diabetes mellitus or previous [place] but family with premature CAD in the family member, and sister has coronarybypass surgery. in Emergency room she had EKG that shows ST-T wave changes in the anterior leads, sinus rhythm, these are acute changes noted, chest x-ray failed to reveal any acute processes, CTA of the chest was negative for pulmonary emboli, there is old healed fractures in the posterior right rib noted, d-dimer was 1.63 , potassium was 3.0, creatinine of 0.9, initial troponin was 0.18 and 0.21 patient's currently seen with consultations to cardiology acute coronary syndrome, IVheparin and Nitrol sublingual when necessary aspirin. 06/22: Patient was prepared for discharge home yesterday but there was concern that her would not be able to take care of her when he has gallbladder surgery next week and discharge was held. However, patient has refused rehab and is not interested in going anywhere or having a PT evaluation. Social workers contacted her and he will come in in transport her home. Patient also complains of depression and is already on Prozac which we will increase to 80 mg daily. She denies any suicidal ideation. Social work has provided outpatient counseling resources for her. Patient will be discharged today in stable condition. Discharge diagnoses: 1. Chest pain rule out acute coronary syndrome with abnormal baseline EKG changes Engineering Test Mechanic recommended cardiac cath dr Shrestha for which it was performed 2017 showing normal coronaries, normal LV function normal LV size EF 60%, 2. COPD exacerbation 3. Morbid obesity 4. chronic Pituitary microadenoma 5. 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 Hypokalemia 7. Hypomagnesemia 8. Tracheobronchitis without purulence Discharge plan: Return home Impression and plan of care have been directed as dictated by the signing physician. Diamond Lai nurse practitioner acting as scribe for signing physician. Patient Condition at Discharge: Good Plan - Discharge Summary Discharge Rx Participant: No New Discharge Prescriptions: New Aspirin EC [Ecotrin Low Dose] 81 mg PO DAILY #30 tablet. Budesonide-Formot 160-4.5 Mcg [Symbicort 160-4.5 Mcg Inhaler] 2 puff INHALATION BID #1 inhaler Levofloxacin [Levaquin] 500 mg PO DAILY #7 tab predniSONE 0 mg PO DIRECTED #45 tab FLUoxetine HCL [PROzac] 80 mg PO DAILY #60 cap Continue Potassium Chloride [Klor-Con Sprinkle] 10 meq PO DAILY Lisinopril [Zestril] 10 mg PO DAILY Hydrochlorothiazide 25 mg PO DAILY Nitroglycerin 0.4 mg SL Q5M PRN PRN Reason: Chest Pain Gabapentin [Neurontin] 300 mg PO HS Folic Acid 1 mg PO DAILY Morphine Sulfate 15 mg PO QID PRN PRN Reason: Pain rOPINIRole HCL 0.5 mg PO BID ALPRAZolam [Xanax] 0.25 mg PO Q6HR PRN PRN Reason: Anxiety Discontinued FLUoxetine HCL [PROzac] 60 mg PO DAILY Discharge Medication List Hydrochlorothiazide 25 mg PO DAILY 09/19/15 [History] Lisinopril [Zestril] 10 mg PO DAILY 09/19/15 [History] Potassium Chloride [Klor-Con Sprinkle] 10 meq PO DAILY 09/19/15 [History] ALPRAZolam [Xanax] 0.25 mg PO Q6HR PRN 06/20/18 [History] Folic Acid 1 mg PO DAILY 06/20/18 [History] Gabapentin [Neurontin] 300 mg PO HS 06/20/18 [History] Morphine Sulfate 15 mg PO QID PRN 06/20/18 [History] Nitroglycerin 0.4 mg SL Q5M PRN 06/20/18 [History] rOPINIRole HCL 0.5 mg PO BID 06/20/18 [History] Aspirin EC [Ecotrin Low Dose] 81 mg PO DAILY #30 tablet.dr 06/21/18 [Rx] Budesonide-Formot 160-4.5 Mcg [Symbicort 160-4.5 Mcg Inhaler] 2 puff INHALATION BID #1 inhaler 06/21/18 [Rx] Levofloxacin [Levaquin] 500 mg PO DAILY #7 tab 06/21/18 [Rx] predniSONE 0 mg PO DIRECTED #45 tab 06/21/18 [Rx] FLUoxetine HCL [PROzac] 80 mg PO DAILY #60 cap 06/22/18 [Rx] Follow up Appointment(s)/Referral(s): Jeromy Shrestha MD [STAFF PHYSICIAN] - 1 Week (Office to call with follow up appointment.) Dustin Quevedo MD [Primary Care Provider] - 06/29/18 1:00 pm () Patient Instructions/Handouts: *Surgery [facility] - After Heart Catheterization - Environmental Services Floor Tech Instructions, How to Stop Smoking (DC), Heart Healthy Diet (DC) Activity/Diet/Wound Care/Special Instructions: follow up with [facility] [phone] -referrals given by social work Discharge Disposition: HOME SELF-CARE
== END 2018-06-22 11:16 | disposition home or self-care (01) ==
LOC: EC 13:34 → INTOOBSV 16:01 → 6SEL 16:01 → UNDODISIN 06-22 11:16
PROVIDERS: ADMIT Family Medicine; ATTEND Family Medicine
PROC: B211YZZ Fluoroscopy of Multiple Coronary Arteries using Other Contrast (ICD-10-PCS; 2018-06-21)
PROC: B215YZZ Fluoroscopy of Left Heart using Other Contrast (ICD-10-PCS; 2018-06-21)
PROC: 4A023N7 Measurement of Cardiac Sampling and Pressure, Left Heart, Percutaneous Approach (ICD-10-PCS; principal; 2018-06-21 12:30)
DX: R07.9 Chest pain, unspecified (principal); R94.31 Abnormal electrocardiogram [ECG] [EKG]; J44.1 Chronic obstructive pulmonary disease with (acute) exacerbation; J44.0 Chronic obstructive pulmonary disease with (acute) lower respiratory infection; J20.9 Acute bronchitis, unspecified; E66.01 Morbid (severe) obesity due to excess calories; Z68.43 Body mass index [BMI] 50.0-59.9, adult; E83.42 Hypomagnesemia; G62.9 Polyneuropathy, unspecified; I10 Essential (primary) hypertension; D35.2 Benign neoplasm of pituitary gland; M51.36 Other intervertebral disc degeneration, lumbar region; M54.32 Sciatica, left side; M54.31 Sciatica, right side; G89.29 Other chronic pain; E87.6 Hypokalemia; E78.5 Hyperlipidemia, unspecified; E07.9 Disorder of thyroid, unspecified; F32.9 Major depressive disorder, single episode, unspecified; F17.200 Nicotine dependence, unspecified, uncomplicated; Z73.3 Stress, not elsewhere classified; Z79.899 Other long term (current) drug therapy; Z87.81 Personal history of (healed) traumatic fracture; Z90.49 Acquired absence of other specified parts of digestive tract; Z88.0 Allergy status to penicillin; Z82.49 Family history of ischemic heart disease and other diseases of the circulatory system; Z81.1 Family history of alcohol abuse and dependence; Z83.79 Family history of other diseases of the digestive system; Z84.1 Family history of disorders of kidney and ureter; Z83.0 Family history of human immunodeficiency virus [HIV] disease
CPT/HCPCS: 96376 ×2; 96366 ×3; 96367; 96365; 96375; 99285; 36415; 94640 ×3; 93005; 93458; 85379; 80061; 80053; 80048; 82550; 82553; 83735 ×3; 84132; 84484; 85025 ×3; 85610; 85730 ×2; 82272; 71046; 71275; G0378 ×3; C8929; C1894; C1769; J2250; J1200; J1644 ×4; J2930 ×2; J2001; J3010; J2270; J3475; J3480; Q9950; Q9967 ×2; 93306

== ENCOUNTER 2018-09-15 20:23 | Inpatient (IN) | payer OTHER ==
[~2018-09-15 20:23] MED LIST: EPINEPHrine 10 ML SYRINGE (0.1 MG/ML) ONE; SODIUM BICARB 8.4% 50 ML SYR (1 MEQ/ML) ONE
[2018-09-15 20:39] LABS: Glucose,Whole Blood 189 mg/dL (75-99)
--- NOTE | 2018-09-15 20:44 | ED ---
General Adult HPI - General Stated complaint: Unresponsive Time Seen by Provider: 09/15/18 20:31 Source: EMS, RN notes reviewed, old records reviewed - History of Present Illness Initial comments: 53-year-old female presents by EMS as CPR in progress. Initial call was for generalized weakness and dyspnea. EMS report that the patient had been evaluated earlier in the day by EMS but had refused transport at that time. She has history of COPD, heart failure, hypertension. [facility] EMS initial evaluation patient refused transport, she was complaining of dyspnea and weakness. Patient then called a second time, was wearing for transport at that time. Initial vitals were stable according to EMS. Patient did deteriorate while in route. She became altered, hypoxic, and bradycardic. She was intubated with oropharyngeal airway. Patient did require transcutaneous pacing for bradycardia while in route. She lost her blood pressure and pulse just prior to arrival in the emergency department. CPR was initiated at that time. - Related Data Home Medications Medication Instructions Recorded Confirmed Lisinopril [Zestril] 10 mg PO DAILY 09/19/15 09/16/18 Potassium Chloride [Klor-Con 10 meq PO DAILY 09/19/15 09/16/18 Sprinkle] ALPRAZolam [Xanax] 0.25 mg PO Q6HR PRN 06/20/18 09/16/18 Folic Acid 1 mg PO DAILY 06/20/18 09/16/18 Gabapentin [Neurontin] 300 mg PO HS 06/20/18 09/16/18 Morphine Sulfate 15 mg PO QID PRN 06/20/18 09/16/18 Nitroglycerin 0.4 mg SL Q5M PRN 06/20/18 09/16/18 rOPINIRole HCL 0.5 mg PO BID 06/20/18 09/16/18 Levothyroxine Sodium [Synthroid] 100 mcg PO DAILY 09/16/18 09/16/18 Nitroglycerin Extended Release 6.5 mg PO BID 09/16/18 09/16/18 [Nitro-Bid] Nystatin 100,000Unit/gm Cream 09/16/18 [Mycostatin Cream] SUMAtriptan SUCCINATE [Imitrex] 100 mg PO BID 09/16/18 09/16/18 Previous Rx's Medication Instructions Recorded Budesonide-Formot 160-4.5 Mcg 2 puff INHALATION BID #1 inhaler 06/21/18 [Symbicort 160-4.5 Mcg Inhaler] Allergies Allergy/AdvReac Type Severity Reaction Status Date / Time buspirone [From BuSpar] Allergy Unknown Verified 09/16/18 14:06 cinoxacin [From Cinobac] Allergy Dyspnea Verified 09/16/18 14:06 Penicillins AdvReac Severe Swelling Verified 09/16/18 14:06 Review of Systems ROS Statement: Those systems with pertinent positive or pertinent negative responses have been documented in the HPI. ROS Other: All systems not noted in ROS Statement are negative. 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 History of Any Multi-Drug Resistant Organisms: None Reported Past Surgical History: Cholecystectomy Past Psychological History: Depression Smoking Status: Current every day smoker Past Alcohol Use History: None Reported Past Drug Use History: None Reported - Past Family History Father History Unknown: Yes (diseased with alcoholic liver disease cirrhosis) Mother History Unknown: Yes (acquired kidney failure) Brother(s) History Unknown: Yes (CHF CK D stage III, one brother from HIV) Sister(s) History Unknown: Yes (CABG at age 67, CK D) Family Medical History: Coronary Artery Disease (CAD) Daughter(s) Family Medical History: Unable to Obtain (no daughter no sons) General Exam - General Exam Comments Initial Comments: Initial exam: patient is apneic, pulseless, cyanotic pupils are 5 mm bilaterally and nonreactive. She was intubated with King merlyn barnes. She has bilateral breath sounds with BVM. No spontaneous heart sounds. Abdomen is soft nondistended. Skin is cool to the touch. Limitations: altered mental status General appearance: obtunded Head exam: Present: atraumatic, normocephalic Eye exam: Absent: PERRL (5 mm bilaterally) ENT exam: Present: other (Tongue laceration and oropharyngeal hemorrhage seen prior to endotracheal intubation.) Respiratory exam: Present: rales, rhonchi Cardiovascular Exam: Present: regular rate, normal rhythm (Sinus rhythm after resuscitation) GI/Abdominal exam: Present: soft. Absent: distended Extremities exam: Present: pedal edema Neurological exam: Present: other (Spontaneous respiration after resuscitation, breathing over the vent, no pupillary reflex, no corneal reflex.) Course Vital Signs 09/15/18 09/15/18 09/15/18 20:35 20:42 21:01 Temperature 98.5 F Pulse Rate 92 96 93 Respiratory 12 28 H 26 H Rate Blood Pressure 161/82 147/88 117/67 O2 Sat by Pulse 99 100 98 Oximetry 09/15/18 09/15/18 09/15/18 21:07 21:20 21:40 Temperature Pulse Rate 92 84 85 Respiratory 27 H 18 18 Rate Blood Pressure 93/56 87/42 89/46 O2 Sat by Pulse 97 98 Oximetry 09/15/18 09/15/18 09/15/18 22:29 23:18 23:30 Temperature Pulse Rate 106 H 117 H 105 H Respiratory 16 18 25 H Rate Blood Pressure 135/82 135/82 O2 Sat by Pulse 100 84 L Oximetry 09/15/18 09/16/18 09/16/18 23:50 00:10 00:40 Temperature Pulse Rate 106 H 113 H 113 H Respiratory 20 29 H 25 H Rate Blood Pressure 184/58 197/42 100/79 O2 Sat by Pulse 97 93 L 89 L Oximetry 09/16/18 09/16/18 09/16/18 02:10 02:40 02:50 Temperature Pulse Rate 123 H 102 H 93 Respiratory 20 22 20 Rate Blood Pressure 90/67 150/86 203/94 O2 Sat by Pulse 96 95 Oximetry 09/16/18 09/16/18 09/16/18 03:00 03:10 03:20 Temperature Pulse Rate 87 83 79 Respiratory 23 24 24 Rate Blood Pressure 203/94 198/47 198/47 O2 Sat by Pulse 95 97 98 Oximetry 09/16/18 09/16/18 03:30 03:58 Temperature 98.3 F Pulse Rate 76 Respiratory 24 Rate Blood Pressure 187/78 O2 Sat by Pulse 97 Oximetry - Reevaluation(s) Reevaluation #1: 09/15/18 20:37 Case discussed with cardiology, Dr. Shrestha, regarding EKG changes. Electronic interpretation of ST segment elevated CO, there is diffuse ST segment changes. Heart cath reviewed from June of this year which was 3 months prior, at this time patient normal coronary arteries. EKG will be repeated, no need for heart cath at this time. Reevaluation #2: 09/15/18 22:44 Patient has several peripheral lines however blood pressure is marginal and there is concern that this will be inadequate venous access. Triple-lumen right -sided IJ catheter is placed under ultrasound guidance. EKG Findings - EKG Comments: EKG Findings:: EKG sinus tachycardia with first-degree A-V block, biatrial enlargement, pulmonary disease pattern, left anterior fascicular block ST segment elevation in aVL with ST segment depression in the inferior leads. Repeat EKG obtained at 2051 15 minutes after initial EKG, normal sinus rhythm with no ST elevation, improved ST segment depression from previous EKG, prolonged QT at 5:15, rate of 97, CT interval 202, QRS duration 94 Procedures - Central Line Placement Right IJ Consent Obtained: verbal consent Time Out Performed: Yes Patient Placed on Monitor/Pulse Ox: Yes MD Prep: mask, gown, gloves Central Line Prep: Chlorhexidine scrub, sterile drapes applied Ultrasound Used for Placement: Yes Central Line Lumen Inserted: triple Bloods Obtained for Lab: No Central Line Position: good blood return, all ports aspirated, flushed, capped, sutured in place with nylon Dressing Applied: Tegaderm Post Procedure X-Ray: tip of catheter in good position Patient Tolerated Procedure: well Complications: none - Intubation Time Out Performed: Yes Laryngoscope: Kimberlyn Size: 4 ET Tube Size: 7.5 ET Tube Uncuffed: No Tube Secured Depth (cm): 22 Tube Secured Location: lips Tube Placement Confirmation: visualized tube passing through cords, equal breath sounds bilaterally, no breath sounds over epigastrium, confirmation by capnometry Patient Tolerated Procedure: well Intubation Complications: none Medical Decision Making - Medical Decision Making 53-year-old female presenting and cut a pulmonary arrest. Patient had complained of dyspnea according to EMS prior to arrival. She does have history of COPD and heart failure. CPR is continued on into ACLS protocol for approximately 9 minutes in the emergency department. Patient does have return of spontaneous circulation. She is in normal sinus rhythm. She is intubated at the time of initial presentation. Patient has gag reflex and is breathing over the vent. She started on propofol in the emergency department. Medical record reviewed, patient had a heart catheterization in June of this year which showed normal coronary arteries. EKG and case presentation is discussed with both cardiology and patient presentation discussed with pulmonology. Chest x-ray shows pulmonary edema consistent with CHF, head CT is obtained which is negative for intracranial hemorrhage, there is a left parietal hypodensity. Patient has normal CBC, potassium 3.3 which is replaced, BNP is 8600 and troponin is mildly elevated. Patient presentation is consistent with likely respiratory arrest. Case discussed with admitting physician Dr. Day. - Lab Data Result diagrams: 09/17/18 04:20 09/17/18 04:20 Lab Results 09/15/18 09/15/18 09/15/18 Range/Units 20:37 20:44 20:44 WBC 11.1 H (3.8-10.6) k/uL RBC 4.13 (3.80-5.40) m/uL Hgb 13.0 (11.4-16.0) gm/dL Hct 43.1 (34.0-46.0) % MCV 104.4 H (80.0-100.0) fL MCH 31.5 (25.0-35.0) pg MCHC 30.2 L (31.0-37.0) g/dL RDW 14.7 (11.5-15.5) % Plt Count 277 (150-450) k/uL Neutrophils % 66 % Lymphocytes % 26 % Monocytes % 5 % Eosinophils % 1 % Basophils % 1 % Neutrophils # 7.3 (1.3-7.7) k/uL Lymphocytes # 2.9 (1.0-4.8) k/uL Monocytes # 0.5 (0-1.0) k/uL Eosinophils # 0.1 (0-0.7) k/uL Basophils # 0.1 (0-0.2) k/uL Hypochromasia Moderate Macrocytosis Moderate PT (9.0-12.0) sec INR (<1.2) APTT (22.0-30.0) sec Sample Site ABG pH (7.35-7.45) ABG pCO2 (35-45) mmHg ABG pO2 (83-108) mmHg ABG HCO3 (21-25) mmol/L ABG Total CO2 (19-24) mmol/L ABG O2 Saturation (94-97) % ABG Base Excess mmol/L Franko Test FiO2 % Sodium (137-145) mmol/L Potassium (3.5-5.1) mmol/L Chloride (98-107) mmol/L Carbon Dioxide (22-30) mmol/L Anion Gap mmol/L BUN (7-17) mg/dL Creatinine (0.52-1.04) mg/dL Est GFR (CKD-EPI)AfAm (>60 ml/min/1.73 sqM) Est GFR (CKD-EPI)NonAf (>60 ml/min/1.73 sqM) Glucose (74-99) mg/dL POC Glucose (mg/dL) 189 H (75-99) mg/dL POC Glu Electroencephalographic Technician Adela Hernandez Calcium (8.4-10.2) mg/dL Magnesium (1.6-2.3) mg/dL Total Bilirubin (0.2-1.3) mg/dL AST (14-36) U/L ALT (9-52) U/L Alkaline Phosphatase (38-126) U/L Total Creatine Kinase 262 H (30-135) U/L CK-MB (CK-2) 2.5 H (0.0-2.4) ng/mL CK-MB (CK-2) Rel Index 1.0 Troponin I 0.061 H* (0.000-0.034) ng/mL NT-Pro-B Natriuret Pep pg/mL Total Protein (6.3-8.2) g/dL Albumin (3.5-5.0) g/dL Urine Color Urine Appearance (Clear) Urine pH (5.0-8.0) Ur Specific [place] (1.001-1.035) Urine Protein (Negative) Urine Glucose (UA) (Negative) Urine Ketones (Negative) Urine Blood (Negative) Urine Nitrite (Negative) Urine Bilirubin (Negative) Urine Urobilinogen (<2.0) mg/dL Ur Leukocyte Esterase (Negative) Urine RBC (0-5) /hpf Urine WBC (0-5) /hpf Ur Squamous Epith Cells (0-4) /hpf Amorphous Sediment (None) /hpf Urine Mucus (None) /hpf 09/15/18 09/15/18 09/15/18 Range/Units 20:44 20:44 20:44 WBC (3.8-10.6) k/uL RBC (3.80-5.40) m/uL Hgb (11.4-16.0) gm/dL Hct (34.0-46.0) % MCV (80.0-100.0) fL MCH (25.0-35.0) pg MCHC (31.0-37.0) g/dL RDW (11.5-15.5) % Plt Count (150-450) k/uL Neutrophils % % Lymphocytes % % Monocytes % % Eosinophils % % Basophils % % Neutrophils # (1.3-7.7) k/uL Lymphocytes # (1.0-4.8) k/uL Monocytes # (0-1.0) k/uL Eosinophils # (0-0.7) k/uL Basophils # (0-0.2) k/uL Hypochromasia Macrocytosis PT 10.5 (9.0-12.0) sec INR 1.1 (<1.2) APTT 26.0 (22.0-30.0) sec Sample Site ABG pH (7.35-7.45) ABG pCO2 (35-45) mmHg ABG pO2 (83-108) mmHg ABG HCO3 (21-25) mmol/L ABG Total CO2 (19-24) mmol/L ABG O2 Saturation (94-97) % ABG Base Excess mmol/L Franko Test FiO2 % Sodium 133 L (137-145) mmol/L Potassium 3.3 L (3.5-5.1) mmol/L Chloride 95 L (98-107) mmol/L Carbon Dioxide 20 L (22-30) mmol/L Anion Gap 18 mmol/L BUN 3 L (7-17) mg/dL Creatinine 0.93 (0.52-1.04) mg/dL Est GFR (CKD-EPI)AfAm 81 (>60 ml/min/1.73 sqM) Est GFR (CKD-EPI)NonAf 70 (>60 ml/min/1.73 sqM) Glucose 199 H (74-99) mg/dL POC Glucose (mg/dL) (75-99) mg/dL POC Glu Electroencephalographic Technician ID Calcium 8.8 (8.4-10.2) mg/dL Magnesium 1.9 (1.6-2.3) mg/dL Total Bilirubin 0.8 (0.2-1.3) mg/dL AST 113 H (14-36) U/L ALT 45 (9-52) U/L Alkaline Phosphatase 88 (38-126) U/L Total Creatine Kinase (30-135) U/L CK-MB (CK-2) (0.0-2.4) ng/mL CK-MB (CK-2) Rel Index Troponin I (0.000-0.034) ng/mL NT-Pro-B Natriuret Pep 8680 pg/mL Total Protein 6.0 L (6.3-8.2) g/dL Albumin 3.2 L (3.5-5.0) g/dL Urine Color Urine Appearance (Clear) Urine pH (5.0-8.0) Ur Specific [place] (1.001-1.035) Urine Protein (Negative) Urine Glucose (UA) (Negative) Urine Ketones (Negative) Urine Blood (Negative) Urine Nitrite (Negative) Urine Bilirubin (Negative) Urine Urobilinogen (<2.0) mg/dL Ur Leukocyte Esterase (Negative) Urine RBC (0-5) /hpf Urine WBC (0-5) /hpf Ur Squamous Epith Cells (0-4) /hpf Amorphous Sediment (None) /hpf Urine Mucus (None) /hpf 09/15/18 09/15/18 Range/Units 21:49 21:52 WBC (3.8-10.6) k/uL RBC (3.80-5.40) m/uL Hgb (11.4-16.0) gm/dL Hct (34.0-46.0) % MCV (80.0-100.0) fL MCH (25.0-35.0) pg MCHC (31.0-37.0) g/dL RDW (11.5-15.5) % Plt Count (150-450) k/uL Neutrophils % % Lymphocytes % % Monocytes % % Eosinophils % % Basophils % % Neutrophils # (1.3-7.7) k/uL Lymphocytes # (1.0-4.8) k/uL Monocytes # (0-1.0) k/uL Eosinophils # (0-0.7) k/uL Basophils # (0-0.2) k/uL Hypochromasia Macrocytosis PT (9.0-12.0) sec INR (<1.2) APTT (22.0-30.0) sec Sample Site LRA ABG pH 7.30 L (7.35-7.45) ABG pCO2 53 H (35-45) mmHg ABG pO2 50 L* (83-108) mmHg ABG HCO3 26 H (21-25) mmol/L ABG Total CO2 28 H (19-24) mmol/L ABG O2 Saturation 80.8 L (94-97) % ABG Base Excess -0.1 mmol/L Franko Test Yes FiO2 100 % Sodium (137-145) mmol/L Potassium (3.5-5.1) mmol/L Chloride (98-107) mmol/L Carbon Dioxide (22-30) mmol/L Anion Gap mmol/L BUN (7-17) mg/dL Creatinine (0.52-1.04) mg/dL Est GFR (CKD-EPI)AfAm (>60 ml/min/1.73 sqM) Est GFR (CKD-EPI)NonAf (>60 ml/min/1.73 sqM) Glucose (74-99) mg/dL POC Glucose (mg/dL) (75-99) mg/dL POC Glu Electroencephalographic Technician ID Calcium (8.4-10.2) mg/dL Magnesium (1.6-2.3) mg/dL Total Bilirubin (0.2-1.3) mg/dL AST (14-36) U/L ALT (9-52) U/L Alkaline Phosphatase (38-126) U/L Total Creatine Kinase (30-135) U/L CK-MB (CK-2) (0.0-2.4) ng/mL CK-MB (CK-2) Rel Index Troponin I (0.000-0.034) ng/mL NT-Pro-B Natriuret Pep pg/mL Total Protein (6.3-8.2) g/dL Albumin (3.5-5.0) g/dL Urine Color Yellow Urine Appearance Turbid H (Clear) Urine pH 6.0 (5.0-8.0) Ur Specific [place] 1.021 (1.001-1.035) Urine Protein 3+ H (Negative) Urine Glucose (UA) 2+ H (Negative) Urine Ketones Trace H (Negative) Urine Blood Moderate H (Negative) Urine Nitrite Negative (Negative) Urine Bilirubin Negative (Negative) Urine Urobilinogen <2.0 (<2.0) mg/dL Ur Leukocyte Esterase Negative (Negative) Urine RBC 15 H (0-5) /hpf Urine WBC 6 H (0-5) /hpf Ur Squamous Epith Cells 12 H (0-4) /hpf Amorphous Sediment Rare H (None) /hpf Urine Mucus Many H (None) /hpf Critical Care Time Critical Care Time: Yes Total Critical Care Time: 35 Disposition Clinical Impression: Cardiopulmonary arrest with successful resuscitation Disposition: ADMITTED IP TO THIS HOSP Condition: Serious Is patient prescribed a controlled substance at d/c from ED?: No Time of Disposition: 22:12 Decision to Admit Reason: Admit from EC Decision Date: 09/15/18 Decision Time: 22:12
[2018-09-15] MEDS ORDERED: PROPOFOL 1,000 MG in EMPTY BAG 1 BAG IV ONE (20:56)
--- NOTE | 2018-09-15 20:59 | XR ---
EXAMINATION TYPE: XR chest 1V portable DATE OF EXAM: 09/15/2018 COMPARISON: 06/20/2018 HISTORY: Intubation. Unresponsive TECHNIQUE: Single frontal view of the chest is obtained. FINDINGS: Endotracheal tube is 3 cm from the coutrney. There is pulmonary vascular congestion. Heart i s enlarged. There are chest leads. IMPRESSION: There could be acute congestive heart failure that is a change compared to last exam. En dotracheal tube is in fairly good position.
[2018-09-15 21:10] LABS: INR 1.1 (<1.2); Prothrombin Time 10.5 sec (9.0-12.0)
[2018-09-15 21:16] LABS: Albumin 3.2 g/dL (3.5-5.0); Calcium 8.8 mg/dL (8.4-10.2); Magnesium 1.9 mg/dL (1.6-2.3); Potassium 3.3 mmol/L (3.5-5.1); Total Bilirubin 0.8 mg/dL (0.2-1.3)
[2018-09-15 21:17] LABS: Basophils # (A) 0.1 k/uL (0-0.2); Basophils % (A) 1 %; Eosinophils # (A) 0.1 k/uL (0-0.7); Eosinophils % (A) 1 %; HCT 43.1 % (34.0-46.0); Hypochromasia Moderate; Lymphocytes # (A) 2.9 k/uL (1.0-4.8); Lymphocytes % (A) 26 %; MCH 31.5 pg (25.0-35.0); MCHC 30.2 g/dL (31.0-37.0); MCV 104.4 fL (80.0-100.0); Macrocytosis Moderate; Mean Platelet Volume 7.8; Monocytes # (A) 0.5 k/uL (0-1.0); Monocytes % (A) 5 %; Neutrophils # (A) 7.3 k/uL (1.3-7.7); Neutrophils % (A) 66 %; Platelet Count 277 k/uL (150-450); RBC 4.13 m/uL (3.80-5.40); RDW 14.7 % (11.5-15.5); WBC 11.1 k/uL (3.8-10.6)
[2018-09-15 21:27] LABS: Creatine Kinase MB 2.5 ng/mL (0.0-2.4)
[2018-09-15 21:32] LABS: Troponin I 0.061 ng/mL (0.000-0.034)
--- NOTE | 2018-09-15 21:44 | CT ---
EXAMINATION TYPE: CT brain wo con DATE OF EXAM: 09/15/2018 COMPARISON: None HISTORY: unresponsive CT DLP: 1063.4 mGycm Automated exposure control for dose reduction was used. FINDINGS: Ventricles have normal size. There is no mass effect nor midline shift. There is no sign of intracran ial hemorrhage. There is some subtle hypodensity in the white matter left parietal lobe. The calvariu m is intact. There is extensive mucosal thickening in the ethmoid sinuses. IMPRESSION: ETHMOID SINUSITIS. LEFT PARIETAL WHITE MATTER HYPODENSITY COULD RELATE TO SMALL VESSEL ISCHEMIA. NO S IGN OF CORTICAL INFARCT.
[2018-09-15 21:53] LABS: ABG Base Excess -0.1 mmol/L; ABG HCO3 26 mmol/L (21-25); ABG Oxygen Saturation 80.8 % (94-97); ABG PCO2 53 mmHg (35-45); ABG TCO2 28 mmol/L (19-24)
[2018-09-15 21:58] LABS: ABG PO2 50 mmHg (83-108)
[2018-09-15] MEDS ORDERED: FUROSEMIDE 10 MG/ML 4 ML VIAL IV STA (22:01)
[2018-09-15] MEDS ORDERED: NALOXONE 0.4 MG/ML 1 ML VIAL IV PRN (22:03)
[2018-09-15 22:20] LABS: Amorphous Sediment,Urine Rare /hpf; Appearance,Urine Turbid (Clear); Bilirubin,Urine Negative (Negative); Blood,Urine Moderate (Negative); Color,Urine Yellow; Glucose,Urine (UA) 2+ (Negative); Ketones,Urine Trace (Negative); Leukocyte Esterase,Urine Negative (Negative); Mucus,Urine Many /hpf; Nitrite,Urine Negative (Negative); Protein,Urine 3+ (Negative); RBC,Urine 15 /hpf (0-5); Specific Gravity,Urine 1.021 (1.001-1.035); Squamous Epithelial Cell,Urine 12 /hpf (0-4); Urobilinogen,Urine <2.0 mg/dL (<2.0); WBC,Urine 6 /hpf (0-5)
[2018-09-15] MEDS: POTASSIUM CHLORIDE 20 MEQ in WATER FOR INJECTION 1 100ML.BAG IVPB SCH (22:58)
--- NOTE | 2018-09-15 22:58 | XR ---
EXAMINATION TYPE: XR chest 1V portable DATE OF EXAM: 09/15/2018 COMPARISON: 09/15/2018 HISTORY: Central line placement TECHNIQUE: Single frontal view of the chest is obtained. FINDINGS: There is right central venous catheter with the tip at the top of the right atrium. There is pulmonary vascular congestion. There is nasogastric tube in good position. There is endotracheal t ube with the tip 5 5 cm from the courtney. No pneumothorax. IMPRESSION: Congestive heart failure. No change compared to exam 2 hours ago.
[2018-09-16] MEDS: PROPOFOL 1,000 MG in EMPTY BAG 1 BAG IV SCH ×8 (02:01→18:52)
[2018-09-16 04:43] LABS: Glucose,Whole Blood 113 mg/dL (75-99)
[2018-09-16] MEDS: POTASSIUM CHLORIDE 20 MEQ in WATER FOR INJECTION 1 100ML.BAG IVPB SCH (05:06)
[2018-09-16 05:12] LABS: Basophils % (A) 0 %; Eosinophils % (A) 0 %; HCT 35.9 % (34.0-46.0); HGB 11.6 gm/dL (11.4-16.0); Lymphocytes # (A) 0.6 k/uL (1.0-4.8); Lymphocytes % (A) 6 %; MCH 32.2 pg (25.0-35.0); MCHC 32.4 g/dL (31.0-37.0); MCV 99.6 fL (80.0-100.0); Macrocytosis Slight; Mean Platelet Volume 7.1; Monocytes # (A) 0.6 k/uL (0-1.0); Monocytes % (A) 6 %; Neutrophils # (A) 8.4 k/uL (1.3-7.7); Neutrophils % (A) 87 %; Platelet Count 201 k/uL (150-450); RBC 3.61 m/uL (3.80-5.40); RDW 14.8 % (11.5-15.5); WBC 9.7 k/uL (3.8-10.6)
[2018-09-16 05:22] LABS: Calcium 8.4 mg/dL (8.4-10.2); Magnesium 1.6 mg/dL (1.6-2.3); Phosphorus 3.4 mg/dL (2.5-4.5); Potassium 3.4 mmol/L (3.5-5.1)
[2018-09-16] MEDS ORDERED: SODIUM CHLORIDE 0.9% 1,000 ML IV ONE ×2 (05:31→06:30)
[2018-09-16] MEDS ORDERED: Magnesium Replacement Protocol 1 EACH MISC MISCELLANE PRN (05:44)
--- NOTE | 2018-09-16 06:06 | P.HPIM ---
History of Present Illness H&P Date: 09/15/18 Chief Complaint: generalized weakness, then cardiac arrest 53-year-old female with past medical history of COPD , hypertension, morbid obesity, pituitary microadenoma and echocardiogram done in May 2018 showing left ventricular ejection fraction of 5560 percent Patient presented to the emergency department with CPR and Route, apparently she has called EMS earlier today for generalized weakness and difficulty in breathing and after initial assessment by EMS patient refused transport to the hospital. Then she called EMS again when she was willing to be transported to Hospital, by the time EMS arrived patient was in severe respiratory distress however her initial vital signs were stable but then deteriorated in Route. She became bradycardic hypoxic and more confused she was intubated to protect her airways and required some transcutaneous pacing for the bradycardia but then she lost her pulse and blood pressure and CPR was initiated. In the emergency department CPR continued for another 9 minutes patient had return of circulation. Chest x-ray suggested pulmonary congestion, EKG suggested ST elevation which was discussed by ER doc with Dr. Shrestha cardiology who reviewed her left heart cath from June of this year which at that time was negative. Dr. Shrestha indicated no need for emergent cath at this time. Triple-lumen central venous catheter was inserted due to marginal blood pressure patient was stabilized and sent to the ICU. Computed tomography scan of the head showed no acute hemorrhage but did suggest left parietal hypodensity in the white matter Review of Systems Unable to obtain patient is intubated Past Medical History Past Medical History: Hypertension, Thyroid Disorder Additional Past Medical History / Comment(s): 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 History of Any Multi-Drug Resistant Organisms: None Reported Past Surgical History: Cholecystectomy Past Psychological History: Depression Smoking Status: Current every day smoker Past Alcohol Use History: None Reported Past Drug Use History: None Reported - Past Family History Father History Unknown: Yes (diseased with alcoholic liver disease cirrhosis) Mother History Unknown: Yes (acquired kidney failure) Brother(s) History Unknown: Yes (CHF CK D stage III, one brother from HIV) Sister(s) History Unknown: Yes (CABG at age 67, CK D) Family Medical History: Coronary Artery Disease (CAD) Daughter(s) Family Medical History: Unable to Obtain (no daughter no sons) Medications and Allergies Home Medications Medication Instructions Recorded Confirmed Type Hydrochlorothiazide 25 mg PO DAILY 09/19/15 06/20/18 History Lisinopril [Zestril] 10 mg PO DAILY 09/19/15 06/20/18 History Potassium Chloride [Klor-Con 10 meq PO DAILY 09/19/15 06/20/18 History Sprinkle] ALPRAZolam [Xanax] 0.25 mg PO Q6HR PRN 06/20/18 06/20/18 History Folic Acid 1 mg PO DAILY 06/20/18 06/20/18 History Gabapentin [Neurontin] 300 mg PO HS 06/20/18 06/20/18 History Morphine Sulfate 15 mg PO QID PRN 06/20/18 06/20/18 History Nitroglycerin 0.4 mg SL Q5M PRN 06/20/18 06/20/18 History rOPINIRole HCL 0.5 mg PO BID 06/20/18 06/20/18 History Aspirin EC [Ecotrin Low Dose] 81 mg PO DAILY #30 tablet. 06/21/18 Rx Budesonide-Formot 160-4.5 Mcg 2 puff INHALATION BID #1 inhaler 06/21/18 Rx [Symbicort 160-4.5 Mcg Inhaler] Levofloxacin [Levaquin] 500 mg PO DAILY #7 tab 06/21/18 Rx predniSONE 0 mg PO DIRECTED #45 tab 06/21/18 Rx FLUoxetine HCL [PROzac] 80 mg PO DAILY #60 cap 06/22/18 Rx Allergies Allergy/AdvReac Type Severity Reaction Status Date / Time Penicillins AdvReac Unknown Verified 09/15/18 20:43 Physical Exam Vitals: Vital Signs Temp Pulse Resp BP Pulse Ox 09/16/18 05:10 56 L 21 89/45 09/16/18 05:00 57 L 16 82/57 09/16/18 04:50 57 L 20 70/48 09/16/18 04:40 98.2 F 60 22 110/95 09/16/18 03:58 98.3 F 09/16/18 03:30 76 24 187/78 97 09/16/18 03:20 79 24 198/47 98 09/16/18 03:10 83 24 198/47 97 09/16/18 03:00 87 23 203/94 95 09/16/18 02:50 93 20 203/94 95 09/16/18 02:40 102 H 22 150/86 96 10/27/18 02:10 123 H 20 90/67 09/16/18 00:40 113 H 25 H 100/79 89 L 09/16/18 00:10 113 H 29 H 197/42 93 L 09/15/18 23:50 106 H 20 184/58 97 09/15/18 23:30 105 H 25 H 84 L 09/15/18 23:18 117 H 18 135/82 09/15/18 22:29 106 H 16 135/82 100 09/15/18 21:40 85 18 89/46 09/15/18 21:20 84 18 87/42 98 09/15/18 21:07 92 27 H 93/56 97 09/15/18 21:01 93 26 H 117/67 98 09/15/18 20:42 96 28 H 147/88 100 09/15/18 20:35 98.5 F 92 12 161/82 99 Intake and Output 09/15/18 09/15/18 09/16/18 14:59 22:59 06:59 Intake Total 8.353 50.274 Output Total 800 Balance 8.353 -749.726 Intake: Intake, IV Titration 8.353 50.274 Amount Propofol 1,000 mg In 8.353 34.82 Empty Bag 1 bag @ 25 MCG/ KG/MIN 25.06 mls/hr IV . Q4H [facility] Rx#:[id number] Propofol 1,000 mg In 15.454 Empty Bag 1 bag @ 25 MCG/ KG/MIN 25.06 mls/hr IV . [facility] Rx#:[id number] Output: Urine 800 Other: Weight 167.1 kg Constitutional: Patient intubated and sedated at this time on mechanical ventilation Eyes: Anicteric sclerae, moist conjunctiva, Pupils equal round reactive to light ENMT: NC/AT, intubated on mechanical ventilation NG tube is draining dark fluids Neck: Supple, no masses, or JVD No carotid bruits No thyromegaly Lungs: Good breath sounds bilaterally with some rhonci Clear to percussion Cardiovascular: Heart regular in rate and rhythm, No murmurs, gallops, or rubs No peripheral edema Abdominal: Soft Nontender, no guarding, rebound or rigidity Abdomen moving with respiration Normoactive bowel sounds No hepatomegaly, No splenomegaly No palpable mass No abdominal wall hernia noted lam cath in place clear urine Skin: Normal temperature, tone, texture, turgor No induration No subcutaneous nodules No rash, lesions No ulcers Extremities: No digital cyanosis No clubbing Pedal pulses intact and symmetrical Radial pulses intact and symmetrical Psychiatric: Intubated and sedated, could not be assessed at this time Neuro could not be assessed at this time patient is intubated and sedated some withdrawal to pain stimulation Lymphatics: no palpable cervical or supraclavicular , or inguinal lymph nodes Results CBC & Chem 7: 09/16/18 05:00 09/16/18 05:00 Labs: Abnormal Lab Results - Last 24 Hours (Table) 09/15/18 09/15/18 09/15/18 Range/Units 20:37 20:44 20:44 WBC 11.1 H (3.8-10.6) k/uL RBC (3.80-5.40) m/uL MCV 104.4 H (80.0-100.0) fL MCHC 30.2 L (31.0-37.0) g/dL Neutrophils # (1.3-7.7) k/uL Lymphocytes # (1.0-4.8) k/uL ABG pH (7.35-7.45) ABG pCO2 (35-45) mmHg ABG pO2 (83-108) mmHg ABG HCO3 (21-25) mmol/L ABG Total CO2 (19-24) mmol/L ABG O2 Saturation (94-97) % Sodium (137-145) mmol/L Potassium (3.5-5.1) mmol/L Chloride (98-107) mmol/L Carbon Dioxide (22-30) mmol/L BUN (7-17) mg/dL Glucose (74-99) mg/dL POC Glucose (mg/dL) 189 H (75-99) mg/dL AST (14-36) U/L Total Creatine Kinase 262 H (30-135) U/L CK-MB (CK-2) 2.5 H (0.0-2.4) ng/mL Troponin I 0.061 H* (0.000-0.034) ng/mL Total Protein (6.3-8.2) g/dL Albumin (3.5-5.0) g/dL Urine Appearance (Clear) Urine Protein (Negative) Urine Glucose (UA) (Negative) Urine Ketones (Negative) Urine Blood (Negative) Urine RBC (0-5) /hpf Urine WBC (0-5) /hpf Ur Squamous Epith Cells (0-4) /hpf Amorphous Sediment (None) /hpf Urine Mucus (None) /hpf 09/15/18 09/15/18 09/15/18 Range/Units 20:44 21:49 21:52 WBC (3.8-10.6) k/uL RBC (3.80-5.40) m/uL MCV (80.0-100.0) fL MCHC (31.0-37.0) g/dL Neutrophils # (1.3-7.7) k/uL Lymphocytes # (1.0-4.8) k/uL ABG pH 7.30 L (7.35-7.45) ABG pCO2 53 H (35-45) mmHg ABG pO2 50 L* (83-108) mmHg ABG HCO3 26 H (21-25) mmol/L ABG Total CO2 28 H (19-24) mmol/L ABG O2 Saturation 80.8 L (94-97) % Sodium 133 L (137-145) mmol/L Potassium 3.3 L (3.5-5.1) mmol/L Chloride 95 L (98-107) mmol/L Carbon Dioxide 20 L (22-30) mmol/L BUN 3 L (7-17) mg/dL Glucose 199 H (74-99) mg/dL POC Glucose (mg/dL) (75-99) mg/dL AST 113 H (14-36) U/L Total Creatine Kinase (30-135) U/L CK-MB (CK-2) (0.0-2.4) ng/mL Troponin I (0.000-0.034) ng/mL Total Protein 6.0 L (6.3-8.2) g/dL Albumin 3.2 L (3.5-5.0) g/dL Urine Appearance Turbid H (Clear) Urine Protein 3+ H (Negative) Urine Glucose (UA) 2+ H (Negative) Urine Ketones Trace H (Negative) Urine Blood Moderate H (Negative) Urine RBC 15 H (0-5) /hpf Urine WBC 6 H (0-5) /hpf Ur Squamous Epith Cells 12 H (0-4) /hpf Amorphous Sediment Rare H (None) /hpf Urine Mucus Many H (None) /hpf 09/16/18 09/16/18 09/16/18 Range/Units 04:31 05:00 05:00 WBC (3.8-10.6) k/uL RBC 3.61 L (3.80-5.40) m/uL MCV (80.0-100.0) fL MCHC (31.0-37.0) g/dL Neutrophils # 8.4 H (1.3-7.7) k/uL Lymphocytes # 0.6 L (1.0-4.8) k/uL ABG pH (7.35-7.45) ABG pCO2 (35-45) mmHg ABG pO2 (83-108) mmHg ABG HCO3 (21-25) mmol/L ABG Total CO2 (19-24) mmol/L ABG O2 Saturation (94-97) % Sodium 132 L (137-145) mmol/L Potassium 3.4 L (3.5-5.1) mmol/L Chloride (98-107) mmol/L Carbon Dioxide (22-30) mmol/L BUN 5 L (7-17) mg/dL Glucose 115 H (74-99) mg/dL POC Glucose (mg/dL) 113 H (75-99) mg/dL AST (14-36) U/L Total Creatine Kinase (30-135) U/L CK-MB (CK-2) (0.0-2.4) ng/mL Troponin I (0.000-0.034) ng/mL Total Protein (6.3-8.2) g/dL Albumin (3.5-5.0) g/dL Urine Appearance (Clear) Urine Protein (Negative) Urine Glucose (UA) (Negative) Urine Ketones (Negative) Urine Blood (Negative) Urine RBC (0-5) /hpf Urine WBC (0-5) /hpf Ur Squamous Epith Cells (0-4) /hpf Amorphous Sediment (None) /hpf Urine Mucus (None) /hpf Assessment and Plan Assessment: 53-year-old female with history of COPD and morbid obesity admitted as inpatient with anticipated length of stay of more than 48 hours due to severe respiratory distress resulting in cardiac arrest. Computed tomography scan of the head suggested hypodense area in the left parietal white matter, chest x- ray suggested pulmonary congestion. Most recent echocardiogram in May 2018 showed left ventricular ejection fraction of 55-60%. EKG showed ST segment elevation however discussed with cardiology who reviewed her most recent left heart cath from June 2018 which was negative. No recommendations for immediate left heart cath was maintained. Plan: acute hypoxic and hypercarbic respiratory failure post cardiac arrest due to severe respiratory distress acute COPD exacerbation HYpotension patient intubated on vent support supportive care duonebs systemic steroids hold home medications (antihypertensive meds) IVF hydration GI bleeding protonix BID IV cbc q8hrs GI consult myoclonic jerks neuroconsult seizure precautions History of hypertension , hyperlipidemia, morbid obesity DVT PPX mechanical due to area of new hypodenisty in the left parietal white matter suspected for vessel ischemia Preformed a thorough record review from recent hospitalization where she presented for respiratory distress and was also found to have elevated troponin , chest pain and EKG changes for which she had a left heart cath showed normal coronary arteries Surrogate decision-maker: Patient Eduardo CODE STATUS: Full code Discussed with: Patient, ER, RN Anticipated discharge: 48-[address]: Pending clinical course A total of 60 minutes was spent on the care of this complex patient more than 50 % of the time was spent in counseling and care coordination.
[2018-09-16] MEDS: MAGNESIUM SULFATE-D5W PMX 1 GM in DEXTROSE/WATER 1 100ML.BAG IVPB SCH ×2 (06:34→08:30)
[2018-09-16] MEDS: methylPREDNISolone SOD SUCCI 125 MG/2 ML VIAL IV SCH ×3 (06:35→17:35)
--- NOTE | 2018-09-16 06:53 | XR ---
EXAMINATION TYPE: XR chest 1V DATE OF EXAM: 09/16/2018 HISTORY: mechanical ventilation. REFERENCE: Previous study dated 09/15/2018. FINDINGS: The patient is ET tube and NG tube remain in place, unchanged in appearance. A right internet media planner al jugular catheter remains in place. Its tip is in the right atrium. There is been some improvement in the patient's volume status. Interstitial change has improved. Ther e continues to be cardiomegaly and small, bilateral effusions. IMPRESSION: IMPROVING CHANGES OF CONGESTIVE HEART FAILURE.
[2018-09-16] MEDS: IPRATROPIUM-ALBUTEROL 3 ML NEB INHALATION SCH ×4 (07:32→19:58)
[2018-09-16] MEDS ORDERED: LORazepam 2 MG/ML INJ IV STA ×2 (08:23→08:39)
[2018-09-16] MEDS: SODIUM CHLORIDE 0.9% 1,000 ML IV SCH ×2 (08:30→20:37)
[2018-09-16] MEDS ORDERED: levETIRAcetam IV 1,000 MG in SALINE 1 100ML.BAG IVPB STA (08:42)
[2018-09-16] MEDS ORDERED: PANTOPRAZOLE 40 MG/10 ML VIAL IV SCH (09:00)
--- NOTE | 2018-09-16 09:13 | P.CNPUL ---
History of Present Illness Consult date: 09/16/18 Chief complaint: Acute cardiac arrest History of present illness: A 53-year-old female patient, morbidly obese with a BMI 55.9 in addition to a vague history of pituitary microadenoma who has had recent cardiac evaluation which included a cardiac catheterization echocardiogram all being within normal limits. The patient is known to have hypertension. The patient was apparently having shortness of breath. She initially called EMS last night and she refused to be transported to the hospital. Her condition got worse and EMS was called back to her house and by that time the patient was found to be in severe respiratory distress. On route to the hospital, the patient had a cardiopulmonary arrest. Unfortunately I do not have the EMS coaches with me. Based on the report from the emergency department, the patient became apparently bradycardic and hypoxic and she lost pulse, probably she wasn't PEA. CPR was initiated. Has cutaneous pacing was also done for bradycardia. She arrived to the emergency department on 2018 p.m. while still having CPR. The patient was intubated in the emergency department. She was in PEA. She received 3 doses of epinephrine between 2018 and 2027. Following that there was spontaneous return of circulation. The chest x-ray showed acute pulmonary edema. The patient postintubation a blood gases that showed pH of 3 with a pCO2 of 53 and pO2 of 50.. Lactic acid were not checked. Initial white count was at 9.7. This morning, the patient is completely unresponsive. Around 4 AM this morning , she started having episodes of sharp and rapid body jerks typical of an underlying generalized seizure activity. There also some myoclonic jerks. The patient is currently on Diprivan which is running at 50 g per KG per minute. She was given Ativan initially 2 mg and subsequently 5 mg and she'll be also placed on Ativan drip. Unfortunately, this activity still going on and it has somewhat improved in frequency yet it's clear that the patient is probably having ongoing seizure activity. The CAT scan of the brain was done on 2017 showed no acute abnormalities. EKG on admission was a normal sinus rhythm. There is prolongation of the QT. No ST segment elevation or depression. The patient is maintaining her pressure with a systolic blood pressure in the mid 90s. No pressors are being utilized. She is afebrile. Renal function is stable. No reported history of any focal neurological deficits prior to her coming to the hospital. No fever. No head trauma. No chest pain. Review of Systems ROS unobtainable: due to endotracheal tube Past Medical History Past Medical History: Hypertension, Thyroid Disorder Additional Past Medical History / Comment(s): 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 Morbid obesity, normal coronaries as mentioned earlier, hypertension History of Any Multi-Drug Resistant Organisms: None Reported Past Surgical History: Cholecystectomy Past Psychological History: Depression Smoking Status: Current every day smoker Past Alcohol Use History: None Reported Past Drug Use History: None Reported - Past Family History Father History Unknown: Yes (diseased with alcoholic liver disease cirrhosis) Mother History Unknown: Yes (acquired kidney failure) Brother(s) History Unknown: Yes (CHF CK D stage III, one brother from HIV) Sister(s) History Unknown: Yes (CABG at age 67, CK D) Family Medical History: Coronary Artery Disease (CAD) Daughter(s) Family Medical History: Unable to Obtain (no daughter no sons) Medications and Allergies Home Medications Medication Instructions Recorded Confirmed Type Hydrochlorothiazide 25 mg PO DAILY 09/19/15 06/20/18 History Lisinopril [Zestril] 10 mg PO DAILY 09/19/15 06/20/18 History Potassium Chloride [Klor-Con 10 meq PO DAILY 09/19/15 06/20/18 History Sprinkle] ALPRAZolam [Xanax] 0.25 mg PO Q6HR PRN 06/20/18 06/20/18 History Folic Acid 1 mg PO DAILY 06/20/18 06/20/18 History Gabapentin [Neurontin] 300 mg PO HS 06/20/18 06/20/18 History Morphine Sulfate 15 mg PO QID PRN 06/20/18 06/20/18 History Nitroglycerin 0.4 mg SL Q5M PRN 06/20/18 06/20/18 History rOPINIRole HCL 0.5 mg PO BID 06/20/18 06/20/18 History Aspirin EC [Ecotrin Low Dose] 81 mg PO DAILY #30 tablet. 06/21/18 Rx Budesonide-Formot 160-4.5 Mcg 2 puff INHALATION BID #1 inhaler 06/21/18 Rx [Symbicort 160-4.5 Mcg Inhaler] Levofloxacin [Levaquin] 500 mg PO DAILY #7 tab 06/21/18 Rx predniSONE 0 mg PO DIRECTED #45 tab 06/21/18 Rx FLUoxetine HCL [PROzac] 80 mg PO DAILY #60 cap 06/22/18 Rx Allergies Allergy/AdvReac Type Severity Reaction Status Date / Time Penicillins AdvReac Unknown Verified 09/15/18 20:43 Physical Exam Vitals: Vital Signs Temp Pulse Resp BP Pulse Ox 09/16/18 08:00 97.5 F L 56 L 20 109/75 98 09/16/18 07:52 61 09/16/18 07:33 56 L 09/16/18 07:00 60 29 H 99/80 09/16/18 06:30 58 L 21 115/85 09/16/18 06:00 64 28 H 93/59 09/16/18 05:30 56 L 12 89/45 09/16/18 05:10 56 L 21 89/45 09/16/18 05:00 57 L 16 82/57 09/16/18 04:50 57 L 20 70/48 09/16/18 04:40 98.2 F 60 22 110/95 09/16/18 03:58 98.3 F 09/16/18 03:30 76 24 187/78 97 09/16/18 03:20 79 24 198/47 98 09/16/18 03:10 83 24 198/47 97 09/16/18 03:00 87 23 203/94 95 09/16/18 02:50 93 20 203/94 95 09/16/18 02:40 102 H 22 150/86 96 09/16/18 02:10 123 H 20 90/67 09/16/18 00:40 113 H 25 H 100/79 89 L 09/16/18 00:10 113 H 29 H 197/42 93 L 09/15/18 23:50 106 H 20 184/58 97 09/15/18 23:30 105 H 25 H 84 L 09/15/18 23:18 117 H 18 135/82 09/15/18 22:29 106 H 16 135/82 100 09/15/18 21:40 85 18 89/46 09/15/18 21:20 84 18 87/42 98 09/15/18 21:07 92 27 H 93/56 97 09/15/18 21:01 93 26 H 117/67 98 09/15/18 20:42 96 28 H 147/88 100 09/15/18 20:35 98.5 F 92 12 161/82 99 Intake and Output 09/15/18 09/16/18 09/16/18 22:59 06:59 14:59 Intake Total 8.353 0368.516 8068 Output Total 860 120 Balance 8.353 461.524 3008 Intake: IV 1000 1075 Sodium Chloride 0.9% 1, 75 000 ml @ 75 mls/hr IV . [id number] Rx#:[id number] Sodium Chloride 0.9% 1, 1000 1000 000 ml @ 999 mls/hr IV . Q1H1M ONE Rx#:[id number] Intake, IV Titration 8.353 134.820 100 Amount Propofol 1,000 mg In 8.353 34.82 Empty Bag 1 bag @ 25 MCG/ KG/MIN 25.06 mls/hr IV . Q4H ONE Rx#:[id number] Propofol 1,000 mg In 100.000 100 Empty Bag 1 bag @ 25 MCG/ KG/MIN 25.06 mls/hr IV . Q4H ME[facility] Rx#:[id number] Output: Urine 860 120 Other: Voiding Method Indwelling Catheter Weight 167.1 kg 186.9 kg Morbidly obese, intubated on a mechanical ventilator, synchronous with the mechanical ventilator for the time being. Completely unresponsive. Body twitches and jerks are seen constantly every few seconds consistent with ongoing seizure activity. Head exam was generally normal. There was no scleral icterus or corneal arcus. Mucous membranes were moist. The patient has an upward gaze with pupils being around 2-3 mm in size nonreactive. Neck was supple and without jugular venous distension, thyromegaly, or carotid bruits. Carotids were easily palpable bilaterally. There was no adenopathy. Lungs sounds are diminished bilaterally otherwise clear. Breath sounds are equal and symmetrical. Cardiac exam revealed the PMI to be normally situated and sized. The rhythm was regular and no extrasystoles were noted during several minutes of auscultation. The first and second heart sounds were normal and physiologic splitting of the second heart sound was noted. There were no murmurs, rubs, clicks, or gallops. Abdominal exam revealed normal bowel sounds. The abdomen was soft, non-tender, and without masses, organomegaly, or appreciable enlargement of the abdominal aorta. Patient has and groin candidiasis. Patient is obese and orders cannot be accurately palpated. Extremities revealed +1 pitting edema and there is no cyanosis or clubbing. Neurologically, this patient is completely unresponsive. Alecia seizure- like activity, probably myoclonic jerks ongoing. She has an upward gaze and she has a pinpoint to very small sized pupils. No nystagmus. No facial asymmetry. Reflexes are diminished bilaterally in all 4 extremities. No facial asymmetry. Examination of the skin revealed no evidence of significant rashes, suspicious appearing nevi or other concerning lesions. Results - Laboratory Findings CBC and BMP: 09/16/18 05:00 09/16/18 05:00 ABG ABG pH 7.30 (7.35-7.45) L 09/15/18 21:49 ABG pCO2 53 mmHg (35-45) H 09/15/18 21:49 ABG pO2 50 mmHg (83-108) L* 09/15/18 21:49 ABG O2 Saturation 80.8 % (94-97) L 09/15/18 21:49 PT/INR, D-dimer PT 10.5 sec (9.0-12.0) 09/15/18 20:44 INR 1.1 (<1.2) 09/15/18 20:44 Abnormal lab findings: Abnormal Labs 09/15/18 09/15/18 09/15/18 20:37 20:44 20:44 WBC 11.1 H RBC MCV 104.4 H MCHC 30.2 L Neutrophils # Lymphocytes # ABG pH ABG pCO2 ABG pO2 ABG HCO3 ABG Total CO2 ABG O2 Saturation Sodium Potassium Chloride Carbon Dioxide BUN Glucose POC Glucose (mg/dL) 189 H AST Total Creatine Kinase 262 H CK-MB (CK-2) 2.5 H Troponin I 0.061 H* Total Protein Albumin Urine Appearance Urine Protein Urine Glucose (UA) Urine Ketones Urine Blood Urine RBC Urine WBC Ur Squamous Epith Cells Amorphous Sediment Urine Mucus 09/15/18 09/15/18 09/15/18 20:44 21:49 21:52 WBC RBC MCV MCHC Neutrophils # Lymphocytes # ABG pH 7.30 L ABG pCO2 53 H ABG pO2 50 L* ABG HCO3 26 H ABG Total CO2 28 H ABG O2 Saturation 80.8 L Sodium 133 L Potassium 3.3 L Chloride 95 L Carbon Dioxide 20 L BUN 3 L Glucose 199 H POC Glucose (mg/dL) AST 113 H Total Creatine Kinase CK-MB (CK-2) Troponin I Total Protein 6.0 L Albumin 3.2 L Urine Appearance Turbid H Urine Protein 3+ H Urine Glucose (UA) 2+ H Urine Ketones Trace H Urine Blood Moderate H Urine RBC 15 H Urine WBC 6 H Ur Squamous Epith Cells 12 H Amorphous Sediment Rare H Urine Mucus Many H 09/16/18 09/16/18 09/16/18 04:31 05:00 05:00 WBC RBC 3.61 L MCV MCHC Neutrophils # 8.4 H Lymphocytes # 0.6 L ABG pH ABG pCO2 ABG pO2 ABG HCO3 ABG Total CO2 ABG O2 Saturation Sodium 132 L Potassium 3.4 L Chloride Carbon Dioxide BUN 5 L Glucose 115 H POC Glucose (mg/dL) 113 H AST Total Creatine Kinase CK-MB (CK-2) Troponin I Total Protein Albumin Urine Appearance Urine Protein Urine Glucose (UA) Urine Ketones Urine Blood Urine RBC Urine WBC Ur Squamous Epith Cells Amorphous Sediment Urine Mucus - Diagnostic Findings Chest x-ray: image reviewed Assessment and Plan Plan: Assessment 1 acute cardiac pulmonary arrest with an exact downtime cannot be accurately established although this is estimated to be at least 10 minutes based on the emergency record. The patient would have even had a prolonged hypoxic event earlier. The patient is currently intubated on a mechanical ventilator. Chest x-rays revealing a mild degree of pulmonary edema. Cardiac workup that was done recently including an echocardiogram and a cardiac catheterization showed no acute abnormalities. As such, the exact cause is not clear. Rule out acute pulmonary edema with subsequent cardiac pulmonary arrest. Rule out pulmonary embolism. 2 seizure activity with myoclonic jerks, most likely secondary to anoxic encephalopathy 3 acute hypoxic respiratory failure, currently intubated on a mechanical ventilator secondary to above 4 questionable pituitary adenoma 5 morbid obesity with a BMI 55.9 6 hypertension, history of 7 hypothyroidism 8 depression Plan We'll try to go back and evaluate EMS run sheet. The parents forcontrolled the patient seizure activity. Continue the Diprivan and put the patient on Ativan drip starting at 6 mg an hour. We'll also add Keppra. We'll proceed with a stat EKG and stat neurology consultation and the CAT scan of the brain will be repeated once the patient is more stable. Continue vent support. Obtain repeat blood gases in the necessary vent changes. Check a stat echocardiogram. Obtain Doppler of the lower extremities. We'll proceed with a CT angios the chest once more stable. The patient had a CT angios on 06/20/2008. It was within normal limits. Note that her cardiac catheterization is also within normal limits. Check urine drug screen. Check hormonal profile including TSH, cortisol, ACTH, and FSH/LH, pressure with his history of adrenal adenoma. Monitor hemodynamics. Continue hemodynamic support. Continue IV fluids. Neurologic consultation. Cardiology consultation. We'll try to get some more information we'll proceed accordingly. Nevertheless, clinically grounds, the patient has suffered some degree of anoxic encephalopathy in the ongoing active problem for now is her seizure activity. She is critical. We'll update the family on her condition. We'll continue to follow. Time with Patient: Greater than 30
[2018-09-16] MEDS ORDERED: LORazepam Vial 40 MG in DEXTROSE 5% IN WATER 80 ML IV SCH ×2 (09:15)
[2018-09-16 09:23] LABS: ABG Base Excess 3.6 mmol/L; ABG HCO3 29 mmol/L (21-25); ABG Oxygen Saturation 99.8 % (94-97); ABG PCO2 47 mmHg (35-45); ABG PH 7.39 (7.35-7.45); ABG PO2 233 mmHg (83-108); ABG TCO2 30 mmol/L (19-24)
[2018-09-16] MEDS: LORazepam Vial 40 MG in DEXTROSE 5% IN WATER 80 ML IV SCH ×4 (09:25→14:45)
[2018-09-16] MEDS: PANTOPRAZOLE 40 MG/10 ML VIAL IV SCH ×2 (09:29→20:38)
--- NOTE | 2018-09-16 09:53 | P.PN ---
Subjective Progress Note Date: 09/16/18 Principal diagnosis: cardiac arrest Patient is a 53-year-old female with a past medical history of COPD, hypertension, morbid obesity, and pituitary adenoma who presented to the ER via EMS due to respiratory distress. Initially the EMS had been called her house for difficulty in breathing and she had an initial assessment refused transportation to the hospital. She then recalled EMS and was amenable to coming in the hospital. On record review in about she became bradycardiac hypoxic and had increased confusion. She was therefore intubated in route to protect her airway. She lost her pulses blood pressure and CPR was initiated. In the emergency department she did have return of spontaneous circulation. Initial evaluation showed a chest x-ray consistent with pulmonary edema, EKG was some ST segment changes, and ABG showing hypoxia. Dr. Shrestha was contacted her records were reviewed which showed a normal heart cath in June 2018 and a preserved ejection fraction echo in May 2017. She had a triple-lumen catheter placed to marginal blood pressure. She was started on bronchodilators, IV steroids and was admitted to the ICU. She developed myoclonic jerking. She then developed a GI bleed and was placed on twice a day Protonix. Patient seen and examined at bedside. Currently sedated and unresponsive on vent. She is breathing over the ventilator but does not have a cough or gag. She does have some jerking as well as IV movements consistent with seizure-like activity. She was given Ativan which decreased seizure like activity. She will be placed on Ativan drip as well as Keppra. Neurology has been consulted. Gastroenterology was consulted. Case discussed with nursing and Dr. Henson. No family present at this time. Objective - Vital Signs Vital signs: Vital Signs Temp 97.5 F L 09/16/18 08:00 Pulse 54 L 09/16/18 09:00 Resp 18 09/16/18 09:00 BP 98/74 09/16/18 09:00 Pulse Ox 100 09/16/18 09:00 Intake & Output 09/15/18 09/16/18 09/16/18 18:59 06:59 18:59 Intake Total 4123.234 0628 Output Total 860 175 Balance 043.717 5608 Weight 186.9 kg Intake: IV 1000 1250 Magnesium Sulfate-D5w Pmx 100 1 gm In Dextrose/Water 1 100ml.bag @ 100 mls/hr IVPB Q1H [facility] Rx#: [id number] Sodium Chloride 0.9% 1, 150 000 ml @ 75 mls/hr IV . [id number] [facility] Rx#:[id number] Sodium Chloride 0.9% 1, 1000 1000 000 ml @ 999 mls/hr IV . Q1H1M ONE Rx#:[id number] Intake, IV Titration 143.173 100 Amount Propofol 1,000 mg In 43.173 Empty Bag 1 bag @ 25 MCG/ KG/MIN 25.06 mls/hr IV . Q4H ONE Rx#:[id number] Propofol 1,000 mg In 100.000 100 Empty Bag 1 bag @ 25 MCG/ KG/MIN 25.06 mls/hr IV . Q4H [facility] Rx#:[id number] Output: Urine 860 175 Other: Voiding Method Indwelling Catheter - Exam General: Ill-appearing, maximal distress, obese, appears older than stated age Derm: warm, dry Head: atraumatic, normocephalic, symmetric Eyes: No lip lesions, sclerae anicteric, pupils pinpoint Mouth: no lip lesion, ET tube in place Cardiovascular: S1S2 reg, no murmur, positive posterior tibial pulse bilateral, Neck: Supple, trachea midline Lungs: Coarse breath sounds bilaterally, on ventilator and is breathing over, no rhonchi, no rales , no accessory muscle use Abdominal: soft, nontender to palpation, no guarding, no appreciable organomegaly limited by body habitus Ext: no gross muscle atrophy, 2+ edema bilateral lower extremities, no contractures Neuro: Jerking of bilateral upper extremities, and facial twitching associated with roving eye movements, CN II-XI grossly intact, no focal neuro deficits Psych: Sedated on vent - Labs CBC & Chem 7: 09/16/18 05:00 09/16/18 09:28 Labs: Abnormal Lab Results - Last 24 Hours (Table) 09/15/18 09/15/18 09/15/18 Range/Units 20:37 20:44 20:44 WBC 11.1 H (3.8-10.6) k/uL RBC (3.80-5.40) m/uL MCV 104.4 H (80.0-100.0) fL MCHC 30.2 L (31.0-37.0) g/dL Neutrophils # (1.3-7.7) k/uL Lymphocytes # (1.0-4.8) k/uL ABG pH (7.35-7.45) ABG pCO2 (35-45) mmHg ABG pO2 (83-108) mmHg ABG HCO3 (21-25) mmol/L ABG Total CO2 (19-24) mmol/L ABG O2 Saturation (94-97) % Sodium (137-145) mmol/L Potassium (3.5-5.1) mmol/L Chloride (98-107) mmol/L Carbon Dioxide (22-30) mmol/L BUN (7-17) mg/dL Glucose (74-99) mg/dL POC Glucose (mg/dL) 189 H (75-99) mg/dL AST (14-36) U/L Total Creatine Kinase 262 H (30-135) U/L CK-MB (CK-2) 2.5 H (0.0-2.4) ng/mL Troponin I 0.061 H* (0.000-0.034) ng/mL Total Protein (6.3-8.2) g/dL Albumin (3.5-5.0) g/dL Urine Appearance (Clear) Urine Protein (Negative) Urine Glucose (UA) (Negative) Urine Ketones (Negative) Urine Blood (Negative) Urine RBC (0-5) /hpf Urine WBC (0-5) /hpf Ur Squamous Epith Cells (0-4) /hpf Amorphous Sediment (None) /hpf Urine Mucus (None) /hpf 09/15/18 09/15/18 09/15/18 Range/Units 20:44 21:49 21:52 WBC (3.8-10.6) k/uL RBC (3.80-5.40) m/uL MCV (80.0-100.0) fL MCHC (31.0-37.0) g/dL Neutrophils # (1.3-7.7) k/uL Lymphocytes # (1.0-4.8) k/uL ABG pH 7.30 L (7.35-7.45) ABG pCO2 53 H (35-45) mmHg ABG pO2 50 L* (83-108) mmHg ABG HCO3 26 H (21-25) mmol/L ABG Total CO2 28 H (19-24) mmol/L ABG O2 Saturation 80.8 L (94-97) % Sodium 133 L (137-145) mmol/L Potassium 3.3 L (3.5-5.1) mmol/L Chloride 95 L (98-107) mmol/L Carbon Dioxide 20 L (22-30) mmol/L BUN 3 L (7-17) mg/dL Glucose 199 H (74-99) mg/dL POC Glucose (mg/dL) (75-99) mg/dL AST 113 H (14-36) U/L Total Creatine Kinase (30-135) U/L CK-MB (CK-2) (0.0-2.4) ng/mL Troponin I (0.000-0.034) ng/mL Total Protein 6.0 L (6.3-8.2) g/dL Albumin 3.2 L (3.5-5.0) g/dL Urine Appearance Turbid H (Clear) Urine Protein 3+ H (Negative) Urine Glucose (UA) 2+ H (Negative) Urine Ketones Trace H (Negative) Urine Blood Moderate H (Negative) Urine RBC 15 H (0-5) /hpf Urine WBC 6 H (0-5) /hpf Ur Squamous Epith Cells 12 H (0-4) /hpf Amorphous Sediment Rare H (None) /hpf Urine Mucus Many H (None) /hpf 09/16/18 09/16/18 09/16/18 Range/Units 04:31 05:00 05:00 WBC (3.8-10.6) k/uL RBC 3.61 L (3.80-5.40) m/uL MCV (80.0-100.0) fL MCHC (31.0-37.0) g/dL Neutrophils # 8.4 H (1.3-7.7) k/uL Lymphocytes # 0.6 L (1.0-4.8) k/uL ABG pH (7.35-7.45) ABG pCO2 (35-45) mmHg ABG pO2 (83-108) mmHg ABG HCO3 (21-25) mmol/L ABG Total CO2 (19-24) mmol/L ABG O2 Saturation (94-97) % Sodium 132 L (137-145) mmol/L Potassium 3.4 L (3.5-5.1) mmol/L Chloride (98-107) mmol/L Carbon Dioxide (22-30) mmol/L BUN 5 L (7-17) mg/dL Glucose 115 H (74-99) mg/dL POC Glucose (mg/dL) 113 H (75-99) mg/dL AST (14-36) U/L Total Creatine Kinase (30-135) U/L CK-MB (CK-2) (0.0-2.4) ng/mL Troponin I (0.000-0.034) ng/mL Total Protein (6.3-8.2) g/dL Albumin (3.5-5.0) g/dL Urine Appearance (Clear) Urine Protein (Negative) Urine Glucose (UA) (Negative) Urine Ketones (Negative) Urine Blood (Negative) Urine RBC (0-5) /hpf Urine WBC (0-5) /hpf Ur Squamous Epith Cells (0-4) /hpf Amorphous Sediment (None) /hpf Urine Mucus (None) /hpf 09/16/18 Range/Units 09:22 WBC (3.8-10.6) k/uL RBC (3.80-5.40) m/uL MCV (80.0-100.0) fL MCHC (31.0-37.0) g/dL Neutrophils # (1.3-7.7) k/uL Lymphocytes # (1.0-4.8) k/uL ABG pH (7.35-7.45) ABG pCO2 47 H (35-45) mmHg ABG pO2 233 H (83-108) mmHg ABG HCO3 29 H (21-25) mmol/L ABG Total CO2 30 H (19-24) mmol/L ABG O2 Saturation 99.8 H (94-97) % Sodium (137-145) mmol/L Potassium (3.5-5.1) mmol/L Chloride (98-107) mmol/L Carbon Dioxide (22-30) mmol/L BUN (7-17) mg/dL Glucose (74-99) mg/dL POC Glucose (mg/dL) (75-99) mg/dL AST (14-36) U/L Total Creatine Kinase (30-135) U/L CK-MB (CK-2) (0.0-2.4) ng/mL Troponin I (0.000-0.034) ng/mL Total Protein (6.3-8.2) g/dL Albumin (3.5-5.0) g/dL Urine Appearance (Clear) Urine Protein (Negative) Urine Glucose (UA) (Negative) Urine Ketones (Negative) Urine Blood (Negative) Urine RBC (0-5) /hpf Urine WBC (0-5) /hpf Ur Squamous Epith Cells (0-4) /hpf Amorphous Sediment (None) /hpf Urine Mucus (None) /hpf Assessment and Plan Assessment: Aborted sudden cardiac -Return of spontaneous circulation -Concern for hypoxic encephalopathy -Cardiology recommendations -Await echo read -Urine drug screen Seizure-like activity -Start Ativan drip and Keppra -Neurology consultation -Stat EEG -Plan for repeat head CT once more clinically stable to assess for possible stroke, edema, or signs of hypoxic injury like loss of newsome-white matter -Not amenable, for MRI at this point in time secondary to medications needed. Acute hypoxic respiratory failure -Concern for possible PE however not a candidate for empiric heparin secondary to recurrent GI bleed -Plan for CTA chest today once more clinically stable, stat venous Dopplers ordered -Vent management as per pulmonary critical care Acute exacerbation of COPD -Bronchodilators -Steroids -Pulmonary hygiene History of hypertension, now borderline hypotension -Old home medications GI bleed -IV PPI twice a day -Serial CBC -GI recommendations Morbid obesity BMI 55.9% -Structured outpatient weight loss History of pituitary adenoma -Check pituitary profile with FSH, LH, ACTH, TSH, and prolactin level It appears that patient likely has suffered from anoxic encephalopathy. We'll continue workup as outlined above. Poor prognosis overall. Family not present currently but will be updated. DVT prophylaxis: SCDs Discussed with: Nursing, Dr. Henson A total of 65 minutes was spent on the care of this complex patient more than 50 % of the time was spent in counseling and care coordination.
[2018-09-16] MEDS ORDERED: Potassium Replacement Protocol 1 EACH MISC MISCELLANE PRN (09:55)
--- NOTE | 2018-09-16 09:56 | PCN ---
PROCEDURE NOTE PROCEDURE NOTE: Left art line insertion. PREOP DIAGNOSIS: Acute cardiac arrest. POSTOP DIAGNOSIS: Acute cardiac arrest. No complications. SITE: Left radial. ARTERIAL LINE PLACEMENT: Indications: Hemodynamic monitoring. A time-out was completed verifying correct patient, procedure, site, positioning, and implant(s) or special equipment if applicable. Franko's test was performed to ensure adequate perfusion. The patient's right wrist was prepped and draped in sterile fashion. 1% Lidocaine was used to anesthetize the area. An 18G Arrow arterial line was introduced into the radial artery. The catheter was threaded over the guide wire and the needle was removed with appropriate pulsatile blood return. Blood loss was minimal. The catheter was then sutured in place to the skin and a sterile dressing applied. Perfusion to the extremity distal to the point of catheter insertion was checked and found to be adequate. The patient tolerated the procedure well and there were no complications. MMODL / IJN: [id number] /
--- NOTE | 2018-09-16 10:02 | CONS ---
CONSULTATION Mrs. Kang is a 53-year-old female who has a known history of chronic obstructive lung disease who presented to the emergency room with respiratory distress and respiratory arrest requiring mechanical ventilation. Apparently she was bradycardiac, hypoxic. She is intubated at this time. She was in the hospital in June of this year; came in with vague chest discomfort at that time. She has been under increased amount of stress. She had T-wave changes on the lateral leads, and because of her persistent symptoms, at that time she underwent a cardiac catheterization that was performed on June 21. It showed no evidence of obstructive coronary artery disease with a normal left ventricular size and systolic function and normal filling pressure. At that time she had an echocardiogram that was a difficult quality echocardiogram, but overall it showed a preserved systolic function. There was inability to assess her right-sided pressure. She had a CT scan of the chest during the same admission that showed no evidence of pulmonary embolism. She is in sinus mechanism since her admission. Her initial EKG showed ST-segment depression laterally and T-wave elevation in I and aVL. The patient is unresponsive, had some seizure-like activity that was thought to be related to anoxic encephalopathy. She received 3 doses of epinephrine last night. She is not on pressors. MEDICATIONS: His medications at the time of admission included: 1. Prednisone. 2. Ropinirole. 3. Lisinopril. 4. Hydrochlorothiazide. 5. Gabapentin. 6. Fluoxetine. 7. Aspirin. 8. Alprazolam. REVIEW OF SYSTEMS: Could not be obtained. PHYSICAL EXAMINATION: She is a 53-year-old female, morbidly obese, intubated. Pupils fixed. Blood pressure 98/70 with a heart rate in the 50s to 60. HEAD: Normocephalic. EYES: Sclerae nonicteric. LUNGS: Clear to auscultation anteriorly. HEART: Regular rate and rhythm. S1, S2. No S3, with a systolic murmur at the base. No diastolic murmur. ABDOMEN: Soft, obese. Positive bowel sounds. No organomegaly. EXTREMITIES: Plus 2 to 3 edema. LAB DATA: Hemoglobin of 11.6, white blood cells of 9.7, potassium 3.4, BUN 5, creatinine 1.04. Troponin on presentation 0.061. NT proBNP of 8680. EKG revealed sinus mechanism with ST-segment depression in inferolateral leads and ST elevation in I and aVL. IMPRESSION: 1. Cardiorespiratory arrest of unclear etiology. Patient may have suffered a pulmonary embolism. Other possibility could be exacerbation of COPD and severe hypoxemia. The possibility of ischemia cannot be totally excluded, although less likely, especially in view of the recent cardiac catheterization that revealed no evidence of plaquing. 2. Morbid obesity. 3. Evidence to suggest severe anoxic encephalopathy. 4. Prior history of hypertension. 5. History of chronic obstructive pulmonary disease. 6. History of hypothyroidism. RECOMMENDATIONS: I will obtain a follow-up EKG. Will review the results of her echocardiogram. I will follow her cardiac enzymes. Depending upon her progress, further recommendations will be made. Unfortunately the prognosis is quite poor. I have discussed her case with Dr. Henson. Thank you for this consult. Will follow with you. VASYL / NAZN: [id number] /
[2018-09-16] MEDS ORDERED: NOREPINEPHRINE 16 MG in SODIUM CHLORIDE 0.9% 250 ML IV SCH (10:30)
[2018-09-16] MEDS: POTASSIUM CHLORIDE 10 MEQ in WATER FOR INJECTION 1 100ML.BAG IVPB SCH ×2 (10:40→11:55)
--- NOTE | 2018-09-16 10:47 | CONS ---
CONSULTATION DATE OF DICTATION: 09/16/2018 REASON FOR CONSULTATION: Acute upper GI bleed. HISTORY OF PRESENT ILLNESS: The patient is a 53-year-old morbidly obese female who was brought into the emergency room by EMS with acute severe respiratory distress, and while with the EMS had cardiopulmonary arrest, at which time she was resuscitated, placed on the vent and admitted to the intensive care unit. At present she is unresponsive. After she was intubated, NG tube was placed and there was some 200 mL of coffee-ground material that was aspirated and hence we are consulted in regards to this issue. The patient at present is intubated and the NG tube has a small amount of coffee-ground material in the tube. She had seizures this morning, for which Neurology has been consulted, and at present she is on propofol drip. No further history is available. PAST MEDICAL HISTORY: 1. Hypertension. 2. Hypothyroidism. 3. Pituitary tumor, being watched. 4. Morbid obesity. PAST SURGICAL HISTORY: Cholecystectomy. MEDICATIONS AT HOME: 1. Hydrochlorothiazide. 2. Zestril. 3. Potassium chloride. 4. Xanax. 5. Neurontin. 6. Morphine sulfate. 7. Nitroglycerin. 8. Ecotrin. 9. Symbicort. 10.Prednisone. 11.Prozac. ALLERGIES: PENICILLIN. SOCIAL HISTORY: Could not be obtained. FAMILY HISTORY: Could not be obtained. REVIEW OF SYSTEMS: Could not be obtained. PHYSICAL EXAMINATION: She is intubated on the vent, unresponsive. VITAL SIGNS: Blood pressure 92/67, pulse rate 82 per minute. Afebrile. HEENT examination unremarkable. Conjunctivae pink. Sclerae anicteric. Oral cavity no lesions. CHEST: Clear to auscultation. ABDOMEN: Obese. Bowel sounds positive. No organomegaly. EXTREMITIES: No pedal edema. SKIN: No rashes. NEURO: Patient is sedated. LABS: Labs done at the time of admission to the hospital showed WBC 11.1, hemoglobin 13, platelets normal. This morning hemoglobin is 11.6 g/dL. ABG showed a pH of 7.3, pCO2 53, PO2 50, oxygen saturation 80%. After intubation, pH improved to 7.36, pCO2 was 47 and PO2 was 233. AST, ALT, total bilirubin and alkaline phosphatase are all within normal limits. IMPRESSION: 1. This is a lady who was having shortness of breath for 2 days and subsequently was being brought to the hospital by EMS and en route had cardiopulmonary arrest, for which she was resuscitated, intubated and admitted to the intensive care unit. While in the ICU, an NG tube was placed and she had a small amount of 200 mL of coffee-ground material that was aspirated. Hence we were consulted for an upper GI bleed. Currently there is no significant coffee-ground material that has been aspirated in the last 12 hours. There was only 200 mL noted. Her hemoglobin remains stable at 11.6 g/dL. She is at present unresponsive. 2. Generalized seizure activity this morning, on IV Diprivan drip at present. RECOMMENDATIONS: 1. Continue with symptomatic and supportive care. 2. No indication for any endoscopic intervention. 3. Follow CBC on a daily basis. 4. Continue IV Protonix 40 mg q.12 hours. We will follow the patient closely during her hospital stay. Thank you for this consultation. VASYL / FLAVIA: [id number] /
[2018-09-16 10:57] VITALS: BMI 55.8
--- NOTE | 2018-09-16 12:15 | US ---
EXAMINATION TYPE: US venous doppler duplex LE DATE OF EXAM: 09/16/2018 9:02 AM COMPARISON: NONE CLINICAL HISTORY: leg swelling, SOB. SIDE PERFORMED: Bilateral TECHNIQUE: The lower extremity deep venous system is examined utilizing real time linear array sonog wilfred with graded compression, doppler sonography and color-flow sonography. VESSELS IMAGED: External Iliac Vein (EIV) Common Femoral Vein Deep Femoral Vein Greater Saphenous Vein * Femoral Vein Popliteal Vein Small Saphenous Vein * Proximal Calf Veins (* superficial vessels) Limited due to body habitus and Patient vented. Right Leg: Negative for DVT Left Leg: Negative for DVT No popliteal fossa lesion is seen. IMPRESSION: THIS EXAMINATION IS NEGATIVE FOR DVT IN BOTH LEGS.
--- NOTE | 2018-09-16 13:08 | CT ---
EXAMINATION TYPE: CT brain wo con DATE OF EXAM: 09/16/2018 COMPARISON: Previous study dated 09/15/2018. HISTORY: Stroke CT DLP: 2284 mGycm Automated exposure control for dose reduction was used. FINDINGS: There has been interval intubation of the patient. Central structures are midline. There is no evidence of hydrocephalus. No acute focal lesion, mass ef fect or midline shift is seen. I do not see evidence of intracranial blood. There is some periventric ular white matter lucency which may relate to chronic ischemic change. This is most prominent in the right parietal lobe. It appears unchanged from previous. There is mild, chronic ethmoidal sinus mucosal disease. The mastoids are clear. The bony calvarium is intact. IMPRESSION: 1. NO ACUTE INTRACRANIAL ABNORMALITY. 2. MILD, CHRONIC ETHMOIDAL SINUS MUCOSAL DISEASE. 3. STABLE PERIVENTRICULAR WHITE MATTER CHANGE, LIKELY REFLECTING CHRONIC WHITE MATTER ISCHEMIC CHANGE .
--- NOTE | 2018-09-16 13:13 | CT ---
EXAMINATION TYPE: CT angio chest DATE OF EXAM: 09/16/2018 12:47 PM COMPARISON: Previous study dated 06/20/2018. HISTORY: PE. Cardiopulmonary arrest CT DLP: 967.9 mGycm Automated exposure control for dose reduction was used. CONTRAST: CTA scan of the thorax is performed without and with IV Contrast, patient injected with 100 ml mL of Isovue 370, pulmonary embolism protocol. . FINDINGS: There has been interval intubation of the patient. There is atelectasis or early consolidation involving both lung bases. The lungs are otherwise clear. There is no significant axillary, internal mammary, mediastinal or hilar adenopathy. There is no evidence of pulmonary embolus. The heart is enlarged. There is no pleural or pericardial fluid. The aorta is normal in caliber without evidence of dissection. There is evidence of an old healed rib fracture of the right posterior eighth rib. IMPRESSION: 1. THIS EXAMINATION IS NEGATIVE FOR PULMONARY EMBOLUS. 2. BIBASILAR ATELECTASIS OR CONSOLIDATION. 3. CARDIOMEGALY. 4. HEALED FRACTURE OF THE RIGHT EIGHTH RIB POSTERIORLY.
[2018-09-16 15:09] LABS: Basophils % (A) 0 %; Eosinophils % (A) 0 %; HCT 38.8 % (34.0-46.0); HGB 12.4 gm/dL (11.4-16.0); Lymphocytes # (A) 0.6 k/uL (1.0-4.8); Lymphocytes % (A) 8 %; MCH 31.8 pg (25.0-35.0); MCHC 31.9 g/dL (31.0-37.0); MCV 99.5 fL (80.0-100.0); Macrocytosis Slight; Mean Platelet Volume 7.5; Monocytes # (A) 0.3 k/uL (0-1.0); Monocytes % (A) 5 %; Neutrophils % (A) 86 %; Platelet Count 196 k/uL (150-450); RDW 14.8 % (11.5-15.5)
--- NOTE | 2018-09-16 16:30 | ECHOF ---
Referral Reason:CHF MEASUREMENTS -------- HEIGHT: 177.8 cm WEIGHT: 186.9 kg BP: 98/75 RVIDd: 2.9 cm (< 3.3) IVSd: 1.3 cm (0.6 - 1.1) LVIDd: 5.3 cm (3.9 - 5.3) LVPWd: 1.5 cm (0.6 - 1.1) IVSs: 1.3 cm LVIDs: 3.6 cm LVPWs: 1.8 cm LA Diam: 1.1 cm (2.7 - 3.8) Ao Diam: 2.8 cm (2.0 - 3.7) AV Cusp: 1.6 cm (1.5 - 2.6) LA Diam: 3.5 cm (2.7 - 3.8) MV EXCURSION: 14.837 mm (> 18.000) MV EF SLOPE: 65 mm/s (70 - 150) EPSS: 0.6 cm MV E Torrey: 0.87 m/s MV DecT: 337 ms MV A Torrey: 0.72 m/s MV E/A Ratio: 1.20 RAP: 5.00 mmHg RVSP: 35.68 mmHg FINDINGS -------- Resting bradycardia (HR<60bpm). This was a technically difficult study with suboptimal views. Morbid Obesity Pt. on a vent. The left ventricular size is normal. There is mild concentric left ventricular hypertrophy. Overa ll left ventricular systolic function is low-normal with, an EF between 50 - 55 %. The right ventricle is normal in size. The left atrium is normal in size. The right atrium was not well visualized. Lumason used The aortic valve was not well visualized. The mitral valve was not well visualized. Mild mitral regurgitation is present. The tricuspid valve was not well visualized. Mild tricuspid regurgitation present. There is mild pulmonary hypertension. The right ventricular systolic pressure, as measured by Doppler, is 35.68mm Hg. The pulmonic valve was not well visualized. There is no pericardial effusion. CONCLUSIONS -------- 1. Resting bradycardia (HR<60bpm). 2. This was a technically difficult study with suboptimal views. 3. Morbid Obesity 4. Pt. on a vent. 5. The left ventricular size is normal. 6. There is mild concentric left ventricular hypertrophy. 7. Overall left ventricular systolic function is low-normal with, an EF between 50 - 55 %. 8. The left atrium is normal in size. 9. The right atrium was not well visualized. 10. Lumason used 11. The aortic valve was not well visualized. 12. The mitral valve was not well visualized. 13. Mild mitral regurgitation is present. 14. Mild tricuspid regurgitation present. 15. There is mild pulmonary hypertension. 16. The pulmonic valve was not well visualized. 17. There is no pericardial effusion. ZOOKEEPER: Diann Urbina RDCS
--- NOTE | 2018-09-16 19:25 | P.CNNES ---
History of Present Illness Consult date: 09/16/18 Requesting physician: cR Loja Reason for Consult: Myoclonic jerks/seizure History of Present Illness: Patient is a 53-year-old female who is being evaluated by the neurology service on 09/17/2018 per the request of Dr. Loja for myoclonic jerks and seizures. Patient has a significant past medical history of COPD, hypertension, morbid obesity, pituitary microadenoma, and hypothyroid. Patient came to [facility] via EMS with CPR in progress. Reportedly, patient called EMS earlier in the day for generalized weakness and difficulty in breathing but refused to be transported to the hospital. Later that day she called EMS again when she was willing to be transported to the hospital, but by the time EMS arrived patient was in severe respiratory distress. Patient deteriorated en route. Patient became bradycardic, hypoxic and more confused. Patient was intubated to protect her airway and required transcutaneous pacing for bradycardia. Patient lost her pulse and blood pressure and CPR was initiated. Chest x-ray showed pulmonary congestion. EKG showed ST elevation. Cardiology was consulted. Patient was stabilized and sent to the ICU. Computed tomography scan of the brain showed no acute hemorrhage but did suggest left parietal hypodensity in the white matter. Patient was having myoclonic jerks as well as seizure activity in the ICU. Patient was given Ativan with limited success. Patient was placed on an Ativan drip at 6 mg an hour which seemed to calm the seizures. Patient is now on Ativan 4 mg per hour. Patient has no cough or gag reflex patient is also heavily sedated with Diprivan and and an Ativan drip. No further seizure activity is noted. EKG was done which showed Burst-Suppression activity. This is consistent with severe brain damage. Given the history, it is severe anoxic brain damage. At the time of my evaluation, patient is in the ICU sedated on to prevent an Ativan drip. Review of Systems REVIEW OF SYSTEMS: Otherwise unremarkable and noncontributory. 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 Morbid obesity, right foot cellulitis History of Any Multi-Drug Resistant Organisms: None Reported Past Surgical History: Cholecystectomy Smoking Status: Current every day smoker - Past Family History Father History Unknown: Yes Mother History Unknown: Yes Brother(s) History Unknown: Yes Sister(s) History Unknown: Yes Family Medical History: Coronary Artery Disease (CAD) Daughter(s) Family Medical History: Unable to Obtain Medications and Allergies Home Medications Medication Instructions Recorded Confirmed Type Lisinopril [Zestril] 10 mg PO DAILY 09/19/15 09/16/18 History Potassium Chloride [Klor-Con 10 meq PO DAILY 09/19/15 09/16/18 History Sprinkle] ALPRAZolam [Xanax] 0.25 mg PO Q6HR PRN 06/20/18 09/16/18 History Folic Acid 1 mg PO DAILY 06/20/18 09/16/18 History Gabapentin [Neurontin] 300 mg PO HS 06/20/18 09/16/18 History Morphine Sulfate 15 mg PO QID PRN 06/20/18 09/16/18 History Nitroglycerin 0.4 mg SL Q5M PRN 06/20/18 09/16/18 History rOPINIRole HCL 0.5 mg PO BID 06/20/18 09/16/18 History Budesonide-Formot 160-4.5 Mcg 2 puff INHALATION BID #1 inhaler 06/21/18 Rx [Symbicort 160-4.5 Mcg Inhaler] Levothyroxine Sodium [Synthroid] 100 mcg PO DAILY 09/16/18 09/16/18 History Nitroglycerin Extended Release 6.5 mg PO BID 09/16/18 09/16/18 History [Nitro-Bid] Nystatin 100,000Unit/gm Cream 09/16/18 History [Mycostatin Cream] SUMAtriptan SUCCINATE [Imitrex] 100 mg PO BID 09/16/18 09/16/18 History Allergies Allergy/AdvReac Type Severity Reaction Status Date / Time buspirone [From BuSpar] Allergy Unknown Verified 09/16/18 14:06 cinoxacin [From Cinobac] Allergy Dyspnea Verified 09/16/18 14:06 Penicillins AdvReac Severe Swelling Verified 09/16/18 14:06 Physical Examination - Vital Signs Vital Signs: Vital Signs Temp Pulse Resp BP Pulse Ox 09/16/18 19:00 95.7 F L 51 L 18 98 09/16/18 18:45 50 L 18 98 09/16/18 18:30 50 L 18 98 09/16/18 18:15 49 L 18 95/62 98 09/16/18 18:00 94.7 F L 49 L 18 99 09/16/18 17:45 49 L 19 99 09/16/18 17:30 94.9 F L 49 L 18 100 09/16/18 17:15 48 L 18 100 09/16/18 17:00 49 L 18 100 09/16/18 16:45 49 L 18 100 09/16/18 16:30 48 L 18 105/60 100 09/16/18 16:15 49 L 18 105/60 100 09/16/18 16:06 78 09/16/18 16:00 94.9 F L 46 L 18 100 09/16/18 15:54 46 L 09/16/18 15:45 48 L 18 100 09/16/18 15:30 48 L 18 100 09/16/18 15:15 49 L 18 110/51 100 09/16/18 15:00 49 L 18 110/51 100 09/16/18 14:45 49 L 18 110/51 100 09/16/18 14:30 49 L 18 110/51 100 09/16/18 14:15 50 L 18 110/51 100 09/16/18 14:00 50 L 18 99/60 100 09/16/18 13:45 49 L 18 99/60 100 09/16/18 13:30 51 L 18 99/60 100 09/16/18 13:00 50 L 18 99 09/16/18 12:30 51 L 22 99/60 09/16/18 12:00 97.4 F L 47 L 23 100 09/16/18 11:30 50 L 18 98/55 100 09/16/18 11:29 50 L 09/16/18 11:14 50 L 09/16/18 11:00 50 L 18 98/55 98 09/16/18 10:30 52 L 18 98/55 99 09/16/18 10:00 53 L 18 97/63 99 09/16/18 09:30 52 L 19 97/63 100 09/16/18 09:00 54 L 18 98/74 100 09/16/18 08:30 56 L 22 98/75 100 09/16/18 08:00 97.5 F L 56 L 20 109/75 98 09/16/18 07:52 61 09/16/18 07:33 56 L 09/16/18 07:00 60 29 H 99/80 09/16/18 06:30 58 L 21 115/85 09/16/18 06:00 64 28 H 93/59 09/16/18 05:30 56 L 12 89/45 09/16/18 05:10 56 L 21 89/45 09/16/18 05:00 57 L 16 82/57 09/16/18 04:50 57 L 20 70/48 09/16/18 04:40 98.2 F 60 22 110/95 09/16/18 03:58 98.3 F 09/16/18 03:30 76 24 187/78 97 09/16/18 03:20 79 24 198/47 98 09/16/18 03:10 83 24 198/47 97 09/16/18 03:00 87 23 203/94 95 09/16/18 02:50 93 20 203/94 95 09/16/18 02:40 102 H 22 150/86 96 09/16/18 02:10 123 H 20 90/67 09/16/18 00:40 113 H 25 H 100/79 89 L 09/16/18 00:10 113 H 29 H 197/42 93 L 09/15/18 23:50 106 H 20 184/58 97 09/15/18 23:30 105 H 25 H 84 L 09/15/18 23:18 117 H 18 135/82 09/15/18 22:29 106 H 16 135/82 100 09/15/18 21:40 85 18 89/46 09/15/18 21:20 84 18 87/42 98 09/15/18 21:07 92 27 H 93/56 97 09/15/18 21:01 93 26 H 117/67 98 09/15/18 20:42 96 28 H 147/88 100 09/15/18 20:35 98.5 F 92 12 161/82 99 Intake and Output 09/16/18 09/16/18 09/16/18 06:59 14:59 22:59 Intake Total 9654.426 2364 691.800 Output Total 860 755 305 Balance 212.630 3949 386.800 Intake: IV 1000 1740 390 0.9 for pressure 15 15 Magnesium Sulfate-D5w Pmx 100 1 gm In Dextrose/Water 1 100ml.bag @ 100 mls/hr IVPB Q1H [facility] Rx#: [id number] Sodium Chloride 0.9% 1, 525 375 000 ml @ 75 mls/hr IV . [id number] [facility] Rx#:[id number] Sodium Chloride 0.9% 1, 1000 1000 000 ml @ 999 mls/hr IV . Q1H1M [facility] Rx#:[id number] levETIRAcetam IV 1,000 mg 100 In Saline 1 100ml.bag @ 400 mls/hr IVPB ONCE [facility] Rx#:[id number] Intake, IV Titration 134.820 380 301.800 Amount LORazepam Vial 40 mg In 80 15.208 Dextrose 5% in Water 80 ml @ 6 MG/HR 15 mls/hr IV .Q6H40M [facility] Rx#: [id number] Norepinephrine 16 mg In 5.548 Sodium Chloride 0.9% 250 ml @ Titrate IV .Q0M [facility] Rx#:[id number] Propofol 1,000 mg In 34.82 Empty Bag 1 bag @ 25 MCG/ KG/MIN 25.06 mls/hr IV . Q4H [facility] Rx#:[id number] Propofol 1,000 mg In 100.000 300 281.044 Empty Bag 1 bag @ 25 MCG/ KG/MIN 25.06 mls/hr IV . Q4H [facility] Rx#:[id number] Output: Gastric Drainage 300 Urine 860 455 305 Other: Voiding Method Indwelling Catheter Indwelling Catheter Indwelling Catheter Weight 186.9 kg 186.9 kg ABP, PAP, CO, CI - Last 8 Hours Arterial Blood Pressure 92/53 Arterial Blood Pressure 92/53 Arterial Blood Pressure 92/53 Arterial Blood Pressure 94/54 Arterial Blood Pressure 92/54 Arterial Blood Pressure 91/53 Arterial Blood Pressure 93/54 Arterial Blood Pressure 92/55 Arterial Blood Pressure 93/55 Arterial Blood Pressure 96/56 Arterial Blood Pressure 106/60 Arterial Blood Pressure 100/58 Arterial Blood Pressure 110/64 Arterial Blood Pressure 105/62 Arterial Blood Pressure 104/61 Arterial Blood Pressure 135/75 Arterial Blood Pressure 112/67 Arterial Blood Pressure 111/71 Arterial Blood Pressure 107/75 Arterial Blood Pressure 108/71 Arterial Blood Pressure 108/73 Arterial Blood Pressure 115/77 Arterial Blood Pressure 112/73 Arterial Blood Pressure 98/60 Arterial Blood Pressure 106/58 Arterial Blood Pressure 88/49 Arterial Blood Pressure 85/48 PHYSICAL EXAM: GENERAL APPEARANCE: Patient is an obese, female who is intubated and on mechanical ventilation in the ICU HEENT: Normocephalic, atraumatic, no obvious facial asymmetry is seen. Neck is supple with no masses felt. CARDIOVASCULAR: Regular rate and rhythm. ABDOMEN: Nontender, nondistended. Obese. EXTREMITIES: Show no edema or clubbing. NEUROLOGICAL EXAM: A meaningful neurological exam could not be performed due to patient being sedated on the ventilator in the ICU. No autonomic reflexes are noted. Results - Laboratory Findings CBC and BMP: 09/16/18 15:00 09/16/18 15:00 Abnormal Lab Findings: Abnormal Labs 09/15/18 09/15/18 09/15/18 20:37 20:44 20:44 WBC 11.1 H RBC MCV 104.4 H MCHC 30.2 L Neutrophils # Lymphocytes # ABG pH ABG pCO2 ABG pO2 ABG HCO3 ABG Total CO2 ABG O2 Saturation Sodium Potassium Chloride Carbon Dioxide BUN Glucose POC Glucose (mg/dL) 189 H AST Total Creatine Kinase 262 H CK-MB (CK-2) 2.5 H Troponin I 0.061 H* Total Protein Albumin Urine Appearance Urine Protein Urine Glucose (UA) Urine Ketones Urine Blood Urine RBC Urine WBC Ur Squamous Epith Cells Amorphous Sediment Urine Mucus 09/15/18 09/15/18 09/15/18 20:44 21:49 21:52 WBC RBC MCV MCHC Neutrophils # Lymphocytes # ABG pH 7.30 L ABG pCO2 53 H ABG pO2 50 L* ABG HCO3 26 H ABG Total CO2 28 H ABG O2 Saturation 80.8 L Sodium 133 L Potassium 3.3 L Chloride 95 L Carbon Dioxide 20 L BUN 3 L Glucose 199 H POC Glucose (mg/dL) AST 113 H Total Creatine Kinase CK-MB (CK-2) Troponin I Total Protein 6.0 L Albumin 3.2 L Urine Appearance Turbid H Urine Protein 3+ H Urine Glucose (UA) 2+ H Urine Ketones Trace H Urine Blood Moderate H Urine RBC 15 H Urine WBC 6 H Ur Squamous Epith Cells 12 H Amorphous Sediment Rare H Urine Mucus Many H 09/16/18 09/16/18 09/16/18 04:31 05:00 05:00 WBC RBC 3.61 L MCV MCHC Neutrophils # 8.4 H Lymphocytes # 0.6 L ABG pH ABG pCO2 ABG pO2 ABG HCO3 ABG Total CO2 ABG O2 Saturation Sodium 132 L Potassium 3.4 L Chloride Carbon Dioxide BUN 5 L Glucose 115 H POC Glucose (mg/dL) 113 H AST Total Creatine Kinase CK-MB (CK-2) Troponin I Total Protein Albumin Urine Appearance Urine Protein Urine Glucose (UA) Urine Ketones Urine Blood Urine RBC Urine WBC Ur Squamous Epith Cells Amorphous Sediment Urine Mucus 09/16/18 09/16/18 09/16/18 09:22 09:40 15:00 WBC RBC MCV MCHC Neutrophils # Lymphocytes # 0.6 L ABG pH ABG pCO2 47 H ABG pO2 233 H ABG HCO3 29 H ABG Total CO2 30 H ABG O2 Saturation 99.8 H Sodium Potassium Chloride Carbon Dioxide BUN Glucose POC Glucose (mg/dL) AST Total Creatine Kinase CK-MB (CK-2) Troponin I 0.069 H* Total Protein Albumin Urine Appearance Urine Protein Urine Glucose (UA) Urine Ketones Urine Blood Urine RBC Urine WBC Ur Squamous Epith Cells Amorphous Sediment Urine Mucus 09/16/18 15:00 WBC RBC MCV MCHC Neutrophils # Lymphocytes # ABG pH ABG pCO2 ABG pO2 ABG HCO3 ABG Total CO2 ABG O2 Saturation Sodium Potassium Chloride Carbon Dioxide BUN Glucose POC Glucose (mg/dL) AST Total Creatine Kinase CK-MB (CK-2) Troponin I 0.043 H* Total Protein Albumin Urine Appearance Urine Protein Urine Glucose (UA) Urine Ketones Urine Blood Urine RBC Urine WBC Ur Squamous Epith Cells Amorphous Sediment Urine Mucus Assessment and Plan Plan: Impression: 1. Post cardiac arrest secondary to severe respiratory distress. 2. Acute hypoxic and hypercarbic respiratory failure. 3. Seizures 4. Myoclonic jerking 5. History of COPD 6. Hypotension 7. Likely hypoxic encephalopathy Recommendation: It appears patient had a sudden cardiac arrest secondary to severe respiratory distress. It is likely patient suffered hypoxic encephalopathy due to the cardiac arrest. Patient is intubated on mechanical ventilation and is sedated in the ICU. Patient was noted to have seizure-like activity and was bolused with Keppra and continues on Keppra 1000 mg every 12 hours. Patient continues on an Ativan drip. Patient is sedated, however, there are no responses elicited. EEG was done and shows Burst-Suppression activity. This is consistent with severe brain damage. Given the history, it is severe a anoxic brain damage. Patient is not currently breathing above the ventilator. Pupils are 1+ and significantly sluggish. Continue current ICU management. Continue seizure precautions. Prognosis is guarded. I will continue to follow with you. Further recommendations to follow. Thank you for allowing me to participate in the care of your patient. Feel free to call with any questions or concerns. I performed an examination of the patient and discussed the management with the ANIMAL HUMANE AGENT SUPERVISOR. I have reviewed the ANIMAL HUMANE AGENT SUPERVISOR notes and agree with the findings and plan of care.
[2018-09-16] MEDS: levETIRAcetam IV 1,000 MG in SALINE 1 100ML.BAG IVPB SCH (20:37)
[2018-09-16] MEDS: CHLORHEXIDINE GLUCONATE 15 ML CUP MUCOUS MEM SCH (20:37)
[2018-09-16 21:11] LABS: Urine Alcohol Negative (Negative); Urine Barbiturate Negative (Negative); Urine Cocaine Negative (Negative); Urine Methadone Negative (Negative); Urine Opiates Positive (Negative); Urine Phencyclidine Negative (Negative)
[2018-09-16 21:29] LABS: Basophils % (A) 0 %; Eosinophils % (A) 0 %; HCT 37.4 % (34.0-46.0); HGB 12.1 gm/dL (11.4-16.0); Lymphocytes # (A) 0.6 k/uL (1.0-4.8); Lymphocytes % (A) 10 %; MCH 32.4 pg (25.0-35.0); MCHC 32.4 g/dL (31.0-37.0); MCV 100.1 fL (80.0-100.0); Macrocytosis Slight; Mean Platelet Volume 7.8; Monocytes # (A) 0.3 k/uL (0-1.0); Monocytes % (A) 5 %; Neutrophils # (A) 4.9 k/uL (1.3-7.7); Neutrophils % (A) 84 %; Platelet Count 186 k/uL (150-450); RBC 3.73 m/uL (3.80-5.40); RDW 14.7 % (11.5-15.5); WBC 5.9 k/uL (3.8-10.6)
[2018-09-17] MEDS: methylPREDNISolone SOD SUCCI 125 MG/2 ML VIAL IV SCH ×2 (00:27→05:27)
[2018-09-17] MEDS: LORazepam Vial 40 MG in DEXTROSE 5% IN WATER 80 ML IV SCH ×6 (00:27→14:31)
[2018-09-17 02:03] VITALS: RESP 18
[2018-09-17 04:31] LABS: Basophils % (A) 0 %; Eosinophils % (A) 0 %; HCT 37.2 % (34.0-46.0); HGB 12.2 gm/dL (11.4-16.0); Lymphocytes # (A) 0.5 k/uL (1.0-4.8); Lymphocytes % (A) 9 %; MCH 32.6 pg (25.0-35.0); MCHC 32.7 g/dL (31.0-37.0); MCV 99.7 fL (80.0-100.0); Macrocytosis Slight; Mean Platelet Volume 7.7; Monocytes # (A) 0.3 k/uL (0-1.0); Monocytes % (A) 6 %; Neutrophils # (A) 4.8 k/uL (1.3-7.7); Neutrophils % (A) 84 %; Platelet Count 190 k/uL (150-450); RBC 3.74 m/uL (3.80-5.40); RDW 14.8 % (11.5-15.5); WBC 5.8 k/uL (3.8-10.6)
[2018-09-17 04:43] LABS: Anion Gap 5 mmol/L; Blood Urea Nitrogen 10 mg/dL (7-17); Calcium 8.6 mg/dL (8.4-10.2); Carbon Dioxide 27 mmol/L (22-30); Chloride 101 mmol/L (98-107); Glucose 125 mg/dL (74-99); Magnesium 2.1 mg/dL (1.6-2.3); Phosphorus 4.2 mg/dL (2.5-4.5); Potassium 3.9 mmol/L (3.5-5.1); Sodium 133 mmol/L (137-145)
[2018-09-17 05:25] LABS: ABG Base Excess 2.3 mmol/L; ABG HCO3 27 mmol/L (21-25); ABG Oxygen Saturation 95.8 % (94-97); ABG PCO2 46 mmHg (35-45); ABG PH 7.38 (7.35-7.45); ABG PO2 80 mmHg (83-108); ABG TCO2 29 mmol/L (19-24)
[2018-09-17] MEDS: POTASSIUM CHLORIDE 10 MEQ in WATER FOR INJECTION 1 100ML.BAG IVPB SCH ×2 (05:28→06:51)
[2018-09-17] MEDS: PROPOFOL 1,000 MG in EMPTY BAG 1 BAG IV SCH ×5 (05:33→14:15)
--- NOTE | 2018-09-17 06:50 | XR ---
EXAMINATION TYPE: XR chest 1V portable DATE OF EXAM: 09/17/2018 HISTORY: SOB, intubated. REFERENCE: Previous study dated 09/16/2018. FINDINGS: The patient's ET tube, NG tube and right internal jugular catheter remain in place, unchang ed in appearance. The heart is mildly enlarged. There is a worsening right-sided effusion with associated atelectatic c hange. The left lung is clear. IMPRESSION: WORSENING CONSOLIDATION OR ATELECTASIS OF THE RIGHT LUNG BASE WITH A CONCOMITANT EFFUSION.
[2018-09-17] MEDS: IPRATROPIUM-ALBUTEROL 3 ML NEB INHALATION SCH ×2 (07:04→11:23)
[2018-09-17] MEDS: PANTOPRAZOLE 40 MG/10 ML VIAL IV SCH (09:13)
[2018-09-17] MEDS: CHLORHEXIDINE GLUCONATE 15 ML CUP MUCOUS MEM SCH (09:13)
[2018-09-17] MEDS: levETIRAcetam IV 1,000 MG in SALINE 1 100ML.BAG IVPB SCH (09:30)
[2018-09-17] MEDS ORDERED: FUROSEMIDE 10 MG/ML 2 ML VIAL IV SCH (10:00)
--- NOTE | 2018-09-17 10:05 | P.PN ---
Subjective Progress Note Date: 09/17/18 Principal diagnosis: cardiac arrest Patient is a 53-year-old female with a past medical history of COPD, hypertension, morbid obesity, and pituitary adenoma who presented to the ER via EMS due to respiratory distress. Initially the EMS had been called her house for difficulty in breathing and she had an initial assessment refused transportation to the hospital. She then recalled EMS and was amenable to coming in the hospital. On record review in about she became bradycardiac hypoxic and had increased confusion. She was therefore intubated in route to protect her airway. She lost her pulses blood pressure and CPR was initiated. In the emergency department she did have return of spontaneous circulation. Initial evaluation showed a chest x-ray consistent with pulmonary edema, EKG was some ST segment changes, and ABG showing hypoxia. Dr. Shrestha was contacted her records were reviewed which showed a normal heart cath in June 2018 and a preserved ejection fraction echo in May 2017. She had a triple-lumen catheter placed to marginal blood pressure. She was started on bronchodilators, IV steroids and was admitted to the ICU. She developed myoclonic jerking. She then developed a GI bleed and was placed on twice a day Protonix. SHe was noted to have possible seizure like activity and was started on keppra and ativan gtt. Which resolved this activity. Her EEG showed severe burst suppression activity consistent with severe hypoxic injury. She had a repeat head CT which not show any significant stroke. Echocardiogram showed preserved ejection fraction. CTA chest and lower extremity venous Dopplers were negative. She underwent a workup for possible secretory pituitary adenoma which was negative. Patient seen and examined at bedside. Sedated on vent. No family present at time of my evaluation. Nursing attempt to wean her Ativan drip which resulted in recurrence of her seizure-like activity. No other acute events overnight. Objective - Vital Signs Vital signs: Vital Signs Temp 96.4 F L 09/17/18 04:00 Pulse 54 L 09/17/18 07:21 Resp 18 09/17/18 07:00 BP 117/60 09/17/18 07:00 Pulse Ox 98 09/17/18 07:00 Intake & Output 09/16/18 09/17/18 09/17/18 18:59 06:59 18:59 Intake Total 2733.800 1223.712 270.167 Output Total 1025 453 45 Balance 1708.800 770.712 225.167 Weight 186.9 kg 187.5 kg Intake: IV 2 1036 178 0.9 for pressure 27 36 3 Magnesium Sulfate-D5w Pmx 100 1 gm In Dextrose/Water 1 100ml.bag @ 100 mls/hr IVPB Q1H [facility] Rx#: [id number] Potassium Chloride 10 meq 100 100 In Water For Injection 1 100ml.bag @ 100 mls/hr IVPB Q1H [facility] Rx#: [id number] Sodium Chloride 0.9% 1, 825 900 75 000 ml @ 75 mls/hr IV . [id number] [facility] Rx#:[id number] Sodium Chloride 0.9% 1, 1000 000 ml @ 999 mls/hr IV . Q1H1M [facility] Rx#:[id number] levETIRAcetam IV 1,000 mg 100 In Saline 1 100ml.bag @ 400 mls/hr IVPB ONCE [facility] Rx#:[id number] Intake, IV Titration 681.800 187.712 92.167 Amount LORazepam Vial 40 mg In 95.208 84.792 92.167 Dextrose 5% in Water 80 ml @ 6 MG/HR 15 mls/hr IV .Q6H40M [facility] Rx#: [id number] Norepinephrine 16 mg In 5.548 2.920 Sodium Chloride 0.9% 250 ml @ Titrate IV .Q0M [facility] Rx#:[id number] Propofol 1,000 mg In 581.044 100 Empty Bag 1 bag @ 25 MCG/ KG/MIN 25.06 mls/hr IV . Q4H [facility] Rx#:[id number] Output: Gastric Drainage 300 Urine 725 453 45 Other: Voiding Method Indwelling Catheter Indwelling Catheter ABP, PAP, CO, CI - Last Documented Arterial Blood Pressure 118/63 - Exam General: Ill-appearing, maximal distress, obese, appears older than stated age Derm: warm, dry Head: atraumatic, normocephalic, symmetric Eyes: No lip lesions, sclerae anicteric, pupils pinpoint Mouth: no lip lesion, ET tube in place Cardiovascular: S1S2 reg, no murmur, positive posterior tibial pulse bilateral, Neck: Supple, trachea midline Lungs: Coarse breath sounds bilaterally, on ventilator and is breathing over, no rhonchi, no rales , no accessory muscle use Abdominal: soft, nontender to palpation, no guarding, no appreciable organomegaly limited by body habitus Ext: no gross muscle atrophy, 1+ edema bilateral lower extremities, no contractures Neuro: No cough, no gag on examination. Pupils pinpoint. Psych: Sedated on vent - Labs CBC & Chem 7: 09/17/18 04:20 09/17/18 04:20 Labs: Abnormal Lab Results - Last 24 Hours (Table) 09/16/18 09/16/18 09/16/18 Range/Units 09:40 10:00 15:00 RBC (3.80-5.40) m/uL MCV (80.0-100.0) fL Lymphocytes # 0.6 L (1.0-4.8) k/uL ABG pCO2 (35-45) mmHg ABG pO2 (83-108) mmHg ABG HCO3 (21-25) mmol/L ABG Total CO2 (19-24) mmol/L Sodium (137-145) mmol/L Glucose (74-99) mg/dL Troponin I 0.069 H* (0.000-0.034) ng/mL Urine Opiates Screen Positive H (Negative) ng/mL U Benzodiazepines Scrn Positive H (Negative) ng/mL U Cannabinoids Screen Positive H (Negative) ng/mL 09/16/18 09/16/18 09/17/18 Range/Units 15:00 21:10 04:20 RBC 3.73 L 3.74 L (3.80-5.40) m/uL MCV 100.1 H (80.0-100.0) fL Lymphocytes # 0.6 L 0.5 L (1.0-4.8) k/uL ABG pCO2 (35-45) mmHg ABG pO2 (83-108) mmHg ABG HCO3 (21-25) mmol/L ABG Total CO2 (19-24) mmol/L Sodium (137-145) mmol/L Glucose (74-99) mg/dL Troponin I 0.043 H* (0.000-0.034) ng/mL Urine Opiates Screen (Negative) ng/mL U Benzodiazepines Scrn (Negative) ng/mL U Cannabinoids Screen (Negative) ng/mL 09/17/18 09/17/18 Range/Units 04:20 05:20 RBC (3.80-5.40) m/uL MCV (80.0-100.0) fL Lymphocytes # (1.0-4.8) k/uL ABG pCO2 46 H (35-45) mmHg ABG pO2 80 L (83-108) mmHg ABG HCO3 27 H (21-25) mmol/L ABG Total CO2 29 H (19-24) mmol/L Sodium 133 L (137-145) mmol/L Glucose 125 H (74-99) mg/dL Troponin I (0.000-0.034) ng/mL Urine Opiates Screen (Negative) ng/mL U Benzodiazepines Scrn (Negative) ng/mL U Cannabinoids Screen (Negative) ng/mL Microbiology - Last 24 Hours (Table) 09/16/18 19:50 Gram Stain - Preliminary Sputum Sputum Culture - Preliminary 09/16/18 03:13 Urine Culture - Preliminary Urine,Catheterized Assessment and Plan Assessment: Aborted sudden cardiac -Return of spontaneous circulation -Concern for hypoxic encephalopathy -Cardiology recommendations apprecaited -Await echo read -Urine drug screen Seizure-like activity -Ativan drip to be weaned and Keppra -Neurology recs appreciated -EEG shows burst supression consistent with severe brain injury, will repeat off ativan gtt -Repeat head CT with chronic small vessel ischemic changes -Not amenable, for MRI at this point in time secondary to medications needed. Acute hypoxic respiratory failure -Vent management as per pulmonary critical care - treatment of COPD Acute exacerbation of COPD -Bronchodilators -Steroids -Pulmonary hygiene History of hypertension, now borderline hypotension -hold home medications GI bleed -IV PPI twice a day -Serial CBC -GI recommendations appreciated Morbid obesity BMI 56.1 -Structured outpatient weight loss History of pituitary adenoma -Ptuitary profile with FSH, LH, ACTH, TSH, and prolactin level- normal It appears that patient likely has suffered from anoxic encephalopathy. Poor prognosis overall. Family not present currently but will be updated. DVT prophylaxis: SCDs Discussed with: Nursing, Dr. Henson, Dr. Shrestha A total of 35 minutes was spent on the care of this complex patient more than 50 % of the time was spent in counseling and care coordination.
[2018-09-17] MEDS: SODIUM CHLORIDE 0.9% 1,000 ML IV SCH (10:19)
[2018-09-17 12:32] VITALS: TEMP 96.4
[2018-09-17 12:34] LABS: Glucose,Whole Blood 127 mg/dL (75-99)
--- NOTE | 2018-09-17 12:51 | PN ---
PROGRESS NOTE HISTORY: Ms. Kang is a 53-year-old female with a history of chronic obstructive lung disease, who presented with cardiopulmonary arrest. She remains intubated. She is being sedated. She is on no pressor at this time. She is in sinus mechanism. There is no evidence of ventricular tachycardia. She had an echocardiogram that was poor quality, but showed no evidence of segmental wall motion abnormality. Her right-sided structures were not well visualized. She had a CT scan of the chest that revealed no evidence of pulmonary embolism. An EEG was performed as well. She was evaluated by the Neurology Service. She continues to be on Keppra and Solu-Medrol. She will be given a dose of diuretics today. PHYSICAL EXAMINATION: Blood pressure running in the 110s with a heart rate in the 50s. LUNGS: Clear anteriorly. HEART: Regular rate and rhythm. S1, S2. No S3. No systolic murmur. ABDOMEN: Soft, obese. No organomegaly. EXTREMITIES: +1 to 2 edema. LAB DATA: BUN and creatinine 10 and 0.82. Troponin 0.023. Hemoglobin of 12.2. IMPRESSION: 1. Cardiopulmonary arrest, etiology unclear. 2. Possible anoxic encephalopathy. 3. Morbid obesity. 4. History of hypertension. 5. Chronic obstructive lung disease. RECOMMENDATIONS: From the cardiac standpoint, she is stable. We will continue clinical observation. Patient will be evaluated by Dr. Arriaza regarding further management. [id number] / NAZN: [id number] /
--- NOTE | 2018-09-17 13:12 | PN ---
PROGRESS NOTE DATE OF SERVICE: 09/17/2018 The patient is a 53-year-old white female admitted to the hospital following a cardiopulmonary arrest. Presently on the vent, sedated, intubated and multiple specials following the patient. She did have a EEG done yesterday and Dr. Hernandez from neurology following the patient closely. She had seizure activity yesterday morning but since then has been under control. We were consulted yesterday because of GI bleed. She had an NG tube placed following intubation and there was about 200 mL of coffee-grounds emesis. Since then she did not have any further episodes of bleeding. Hemoglobin remains stable at 12 g/dL. PHYSICAL EXAMINATION: She is sedated, intubated, unresponsive. VITAL SIGNS: Stable. Blood pressure 102/56, pulse rate 93, temperature 98. HEENT examination unremarkable. Conjunctivae pink. Sclerae anicteric. Oral cavity no lesions. CHEST: Clear to auscultation. HEART: Regular rate and rhythm. Abdomen is very obese. Bowel sounds are positive. No organomegaly. Extremities: No pedal edema. Skin: No rashes. Neurological: Sedated. LABS: From today, hemoglobin 12.2, WBC 5.8, platelets are normal. Basic metabolic panel is within normal limits. Troponin 0.043. IMPRESSION: 1. Status post cardiopulmonary arrest 2 days ago, presently on the ventilator, sedated and intubated. 2. Generalized seizure activity. Neurology following the patient closely. She had EEG yesterday and apparently was noted to have severe brain damage. 3. Acute upper gastrointestinal bleed, most likely stress related gastritis, which has since resolved. No active bleeding currently from NG tube. Hemoglobin remains stable at 12.2 g/dL. 4. Elevated troponin. Cardiology following the patient closely. RECOMMENDATIONS: 1. Continue with IV Protonix 40 mg daily. 2. CBC on a daily basis. 3. No need for any endoscopy intervention. At this time, we will follow her closely during hospital stay. Thank you for this consultation. MMODL / IJN: [id number] /
[2018-09-17 14:17] VITALS: PULSE 57
--- NOTE | 2018-09-17 14:29 | P.PN ---
Subjective Progress Note Date: 09/17/18 A 53-year-old female patient, morbidly obese with a BMI 55.9 in addition to a vague history of pituitary microadenoma who has had recent cardiac evaluation which included a cardiac catheterization echocardiogram all being within normal limits. The patient is known to have hypertension. The patient was apparently having shortness of breath. She initially called EMS last night and she refused to be transported to the hospital. Her condition got worse and EMS was called back to her house and by that time the patient was found to be in severe respiratory distress. On route to the hospital, the patient had a cardiopulmonary arrest. Unfortunately I do not have the EMS coaches with me. Based on the report from the emergency department, the patient became apparently bradycardic and hypoxic and she lost pulse, probably she wasn't PEA. CPR was initiated. Has cutaneous pacing was also done for bradycardia. She arrived to the emergency department on 2018 p.m. while still having CPR. The patient was intubated in the emergency department. She was in PEA. She received 3 doses of epinephrine between 2018 and 2027. Following that there was spontaneous return of circulation. The chest x-ray showed acute pulmonary edema. The patient postintubation a blood gases that showed pH of 3 with a pCO2 of 53 and pO2 of 50.. Lactic acid were not checked. Initial white count was at 9.7. This morning, the patient is completely unresponsive. Around 4 AM this morning , she started having episodes of sharp and rapid body jerks typical of an underlying generalized seizure activity. There also some myoclonic jerks. The patient is currently on Diprivan which is running at 50 g per KG per minute. She was given Ativan initially 2 mg and subsequently 5 mg and she'll be also placed on Ativan drip. Unfortunately, this activity still going on and it has somewhat improved in frequency yet it's clear that the patient is probably having ongoing seizure activity. The CAT scan of the brain was done on 2017 showed no acute abnormalities. EKG on admission was a normal sinus rhythm. There is prolongation of the QT. No ST segment elevation or depression. The patient is maintaining her pressure with a systolic blood pressure in the mid 90s. No pressors are being utilized. She is afebrile. Renal function is stable. No reported history of any focal neurological deficits prior to her coming to the hospital. No fever. No head trauma. No chest pain. On 09/17/2018, the patient is intubated on a mechanical ventilator. The patient is an assist-control mode of ventilation. This morning the patient is on an assist-control at the rate of 18 with a tidal volume of 500 and FiO2 of 50 % and PEEP of 5. She is intubated by 7.72 with a 22 cm lip line. Her blood gases from today showed a pH of 7.38 with a pCO2 of 46 and pO2 of 80. Chest x- ray showing mild pulmonary vessel congestion/edema. ET tube is in a good location. The patient is afebrile. Hemodynamically she is doing well and she is on no pressors. She was given IV fluids at a time of admission and currently she is on a maintenance fluid rate of normal saline today to 75 mL an hour. We will fed is being utilized on and off and he has been off since 6:00 this morning. As part of further investigation for her pulmonary arrest, the patient underwent a echocardiogram that showed no acute abnormalities. The CT angios the chest was also negative. Note that she has a known history of normal coronaries. A repeat CAT scan of the brain was done and there was no acute intracranial abnormality. There was some mild chronic ethmoidal sinus disease. The patient's is currently on a combination of propofol 50 mics and Ativan drip at 4 mg an hour. With this combination, were able to suppress any form of clinical seizure activity that was being with this at the bedside. EEG was done yesterday and showed diffuse slowing of the waves and there was some occasional burst suppression. He was also added per neurology's recommendation. Further investigation also yielded a urine drug screen that was positive only for cannabinoids. The endocrinologic profile was essentially negative and the patient did not show any signs of hypopituitarism based on the hormonal levels. The patient was attempted to be taken off Ativan this morning. Once Ativan was discontinued and within the next 30 minutes the patient started having similar type of jerking body activity involving the neck and the head and the shoulders and upper extremities. These were brief myoclonic-type of activity. On neurologic examination her pupils are about 3mm , nonreactive and she is completely unresponsive. She is not breathing above the ventilator and she is riding the vent at the rate of 18. No elicited coughing or gagging reflex. Objective - Vital Signs Vital signs: Vital Signs Temp 96.4 F L 09/17/18 12:00 Pulse 56 L 09/17/18 13:00 Resp 18 09/17/18 13:00 BP 90/44 09/17/18 13:00 Pulse Ox 98 09/17/18 13:00 Intake & Output 09/16/18 09/17/18 09/17/18 18:59 06:59 18:59 Intake Total 2733.800 9773.661 1865.258 Output Total 1025 453 825 Balance 1708.800 770.712 332.258 Weight 186.9 kg 187.5 kg Intake: IV 2 1036 746 0.9 for pressure 27 36 21 Magnesium Sulfate-D5w Pmx 100 1 gm In Dextrose/Water 1 100ml.bag @ 100 mls/hr IVPB Q1H MEET Rx#: [id number] Potassium Chloride 10 meq 100 100 In Water For Injection 1 100ml.bag @ 100 mls/hr IVPB Q1H MEET Rx#: [id number] Sodium Chloride 0.9% 1, 825 900 525 000 ml @ 75 mls/hr IV . [id number] MEET Rx#:[id number] Sodium Chloride 0.9% 1, 1000 000 ml @ 999 mls/hr IV . Q1H1M ONE Rx#:[id number] levETIRAcetam IV 1,000 mg 100 In Saline 1 100ml.bag @ 400 mls/hr IVPB ONCE STA Rx#:[id number] levETIRAcetam IV 1,000 mg 100 In Saline 1 100ml.bag @ 400 mls/hr IVPB Q12HR MEET Rx#:[id number] Intake, IV Titration 681.800 187.712 411.258 Amount LORazepam Vial 40 mg In 95.208 84.792 95.125 Dextrose 5% in Water 80 ml @ 6 MG/HR 15 mls/hr IV .Q6H40M MEET Rx#: [id number] Norepinephrine 16 mg In 5.548 2.920 Sodium Chloride 0.9% 250 ml @ Titrate IV .Q0M MEET Rx#:[id number] Propofol 1,000 mg In 581.044 100 316.133 Empty Bag 1 bag @ 25 MCG/ KG/MIN 25.06 mls/hr IV . Q4H MEET Rx#:[id number] Output: Gastric Drainage 300 Urine 725 453 825 Other: Voiding Method Indwelling Catheter Indwelling Catheter Indwelling Catheter ABP, PAP, CO, CI - Last Documented Arterial Blood Pressure 94/51 - Exam Morbidly obese, intubated on a mechanical ventilator, synchronous with the mechanical ventilator for the time being. Completely unresponsive. Body twitches and jerks were again noted after the patient being taken off the Ativan. Head exam was generally normal. There was no scleral icterus or corneal arcus. Mucous membranes were moist. The patient has an upward gaze with pupils being around 2-3 mm in size nonreactive. Neck was supple and without jugular venous distension, thyromegaly, or carotid bruits. Carotids were easily palpable bilaterally. There was no adenopathy. Lungs sounds are diminished bilaterally otherwise clear. Breath sounds are equal and symmetrical. Cardiac exam revealed the PMI to be normally situated and sized. The rhythm was regular and no extrasystoles were noted during several minutes of auscultation. The first and second heart sounds were normal and physiologic splitting of the second heart sound was noted. There were no murmurs, rubs, clicks, or gallops. Abdominal exam revealed normal bowel sounds. The abdomen was soft, non-tender, and without masses, organomegaly, or appreciable enlargement of the abdominal aorta. Patient has and groin candidiasis. Patient is obese and orders cannot be accurately palpated. Extremities revealed +1 pitting edema and there is no cyanosis or clubbing. Neurologically, this patient is completely unresponsive. Pupils around 2 mm in size, reactive to light. Rest of the neurologic exam cannot be accurately performed as the patient is on a combination of propofol and Ativan at the higher doses. No gag. No cough reflex noted. The patient is riding the mechanical ventilator. Examination of the skin revealed no evidence of significant rashes, suspicious appearing nevi or other concerning lesions. - Labs CBC & Chem 7: 09/17/18 04:20 09/17/18 04:20 Labs: Abnormal Lab Results - Last 24 Hours (Table) 09/16/18 09/16/18 09/16/18 Range/Units 10:00 15:00 15:00 RBC (3.80-5.40) m/uL MCV (80.0-100.0) fL Lymphocytes # 0.6 L (1.0-4.8) k/uL ABG pCO2 (35-45) mmHg ABG pO2 (83-108) mmHg ABG HCO3 (21-25) mmol/L ABG Total CO2 (19-24) mmol/L Sodium (137-145) mmol/L Glucose (74-99) mg/dL POC Glucose (mg/dL) (75-99) mg/dL Troponin I 0.043 H* (0.000-0.034) ng/mL Urine Opiates Screen Positive H (Negative) ng/mL U Benzodiazepines Scrn Positive H (Negative) ng/mL U Cannabinoids Screen Positive H (Negative) ng/mL 09/16/18 09/17/18 09/17/18 Range/Units 21:10 04:20 04:20 RBC 3.73 L 3.74 L (3.80-5.40) m/uL MCV 100.1 H (80.0-100.0) fL Lymphocytes # 0.6 L 0.5 L (1.0-4.8) k/uL ABG pCO2 (35-45) mmHg ABG pO2 (83-108) mmHg ABG HCO3 (21-25) mmol/L ABG Total CO2 (19-24) mmol/L Sodium 133 L (137-145) mmol/L Glucose 125 H (74-99) mg/dL POC Glucose (mg/dL) (75-99) mg/dL Troponin I (0.000-0.034) ng/mL Urine Opiates Screen (Negative) ng/mL U Benzodiazepines Scrn (Negative) ng/mL U Cannabinoids Screen (Negative) ng/mL 09/17/18 09/17/18 Range/Units 05:20 12:23 RBC (3.80-5.40) m/uL MCV (80.0-100.0) fL Lymphocytes # (1.0-4.8) k/uL ABG pCO2 46 H (35-45) mmHg ABG pO2 80 L (83-108) mmHg ABG HCO3 27 H (21-25) mmol/L ABG Total CO2 29 H (19-24) mmol/L Sodium (137-145) mmol/L Glucose (74-99) mg/dL POC Glucose (mg/dL) 127 H (75-99) mg/dL Troponin I (0.000-0.034) ng/mL Urine Opiates Screen (Negative) ng/mL U Benzodiazepines Scrn (Negative) ng/mL U Cannabinoids Screen (Negative) ng/mL Microbiology - Last 24 Hours (Table) 09/16/18 03:13 Urine Culture - Final Urine,Catheterized 09/16/18 19:50 Gram Stain - Preliminary Sputum Sputum Culture - Preliminary Assessment and Plan Plan: Assessment 1 acute cardiopulmonary arrest with an exact downtime cannot be accurately established although this is estimated to be at least 10 minutes based on the emergency record. The patient would have even had a prolonged hypoxic event earlier. The workup for the cardiopulmonary arrest is negative and as such is not clear why the patient went into this type of cardio pulmonary arrest. CT angios the chest was negative. Echocardiogram was within normal limits. The cardiac catheterization done recently was negative. It's likely the patient went into a respiratory arrest, followed by complete hemodynamic collapse and failure. Is also likely the patient could've been into pulmonary edema/ diastolic heart failure. 2 seizure activity with myoclonic jerks, most likely secondary to anoxic encephalopathy, primary seizure activity cannot be completely excluded. The patient had an EEG that shows diffuse slowing with occasional burst suppression. The patient is currently on accommodation a Profore and Ativan. Repeat CAT scan of the brain showed no acute abnormalities. 3 acute hypoxic respiratory failure, currently intubated on a mechanical ventilator secondary to above 4 questionable pituitary adenoma, history of 5 morbid obesity with a BMI 55.9 6 hypertension, history of 7 hypothyroidism 8 depression Plan I will discussion with the medical team. I think the patient will be best served if she gets transferred to [facility] with EEG can be monitored continuously and based on that further adjustments on the antiepileptic medication can be done. I'm unable to monitor this patient's neuro status and the patient may benefit from continuous monitoring during which the various drips can be adjusted been regulated based on her overall clinical response and neurologic response. Based on all this, we discussed the case with [facility] neurology team and the patient will be taken to the neuro ICU. We'll keep the propofol for now. We'll keep the Ativan. We'll continue the Keppra. We'll continue vent support. Hemodynamically stable. She is on no pressors for now. She can be transferred via ambulance. Case was also discussed with the was agreeable for transfer. Anticipate transferring this patient in the next few hours. Continue to follow. Condition is critical. Prognosis poor baseline above-mentioned comorbidities. Critically care evaluation done more than 40 minutes. Time with Patient: Greater than 30
--- NOTE | 2018-09-17 14:36 | P.DS ---
Providers Date of admission: 09/15/18 22:03 Expected date of discharge: 09/17/18 Attending physician: Rc Loja MD Consults: 09/15/18 22:03 Consult Physician Urgent Consulting Provider: Antolin Henson Consult Reason/Comments: Cardiopulmonary arrest with return of spontaneous circulation Do you want consulting provider notified?: Already Contacted Consult Physician Urgent Consulting Provider: Jeromy Shrestha Consult Reason/Comments: Cardiopulmonary arrest Do you want consulting provider notified?: Already Contacted 09/16/18 06:57 Consult Physician Routine Consulting Provider: Shanice Hernandez Consult Reason/Comments: myoclonic jerks, Lt parietal white matter hypodensity Do you want consulting provider notified?: Yes Consult Physician Routine Consulting Provider: Camille Collado Consult Reason/Comments: GI bleed Do you want consulting provider notified?: Yes Primary care physician: david Day Kimball Hospital Course: Discharge Diagnosis: Aborted sudden cardiac Seizure-like activity with possible anoxic encephalopathy Acute hypoxic respiratory failure Acute exacerbation of COPD History of hypertension with borderline hypotension off levo fed GI bleed ruled out-stable hemoglobin Morbid obesity 56.1 History of pituitary adenoma Hospital Course: Patient is a 53-year-old female with a past medical history of COPD, hypertension, morbid obesity, and pituitary adenoma who presented to the ER via EMS due to respiratory distress. Initially the EMS had been called her house for difficulty in breathing and she had an initial assessment refused transportation to the hospital. She then recalled EMS and was amenable to coming in the hospital. On record review in about she became bradycardiac hypoxic and had increased confusion. She was therefore intubated in route to protect her airway. She lost her pulses and CPR was initiated. On arrival in the ED she was in PEA arrest. In the emergency department she did have return of spontaneous circulation after 9 minutes of CPR. Initial evaluation showed a chest x-ray consistent with pulmonary edema, EKG was some ST segment changes, and ABG showing hypoxia. Dr. Shrestha (cardio) was contacted her records were reviewed which showed a normal heart cath in June 2018 and a preserved ejection fraction echo in May 2018. She had a triple-lumen catheter placed to marginal blood pressure. She was started on bronchodilators, IV steroids and was admitted to the ICU. She developed myoclonic jerking. She then developed a a suspected GI bleed with dark NGT output and was placed on twice a day Protonix. However her HGB remained stable for 24 hours and GI bleed was ruled out. She was noted to have possible seizure like activity was was given 1 mg of ativan which did not help. She then received an additional 4 mg of ativan and seizure like activity was suppressed. She was started on keppra and ativan gtt which resolved this activity. Her EEG showed severe burst suppression activity consistent with severe hypoxic injury. She had a repeat head CT which not show any significant stroke. Echocardiogram showed preserved ejection fraction. CTA chest and lower extremity venous Dopplers were negative. She underwent a workup for possible secretory pituitary adenoma which was negative. Her reflexes were absent, no cough, no gag, but this may be due to level of sedation. Her ativan gtt was stopped at 11:30 on 09/17 and she had some residual seizure like activity with stimulation. As her work-up for causes of cardiopulmomary arrest was negative and there was concern for continued seizure we requested transfer to [facility] for continuous EEG monitoring. Her was in agreement with this plan and patient was subsequently transferred to [facility]. For physical exam please see progress notes same date. A total of 45 minutes of time were spent preparing this complex discharge summary . Pertinent Studies: Head CT-left paraventricular white matter ischemic changes present and repeat CPE CT of the head and neck exam negative for pulmonary embolism, bibasilar atelectasis, cardiomegaly, healed fracture of the Right eighth rib Venous dopplers- negative Patient Condition at Discharge: Serious Plan - Discharge Summary New Discharge Prescriptions: No Action Potassium Chloride [Klor-Con Sprinkle] 10 meq PO DAILY Lisinopril [Zestril] 10 mg PO DAILY Nitroglycerin 0.4 mg SL Q5M PRN PRN Reason: Chest Pain Gabapentin [Neurontin] 300 mg PO HS Folic Acid 1 mg PO DAILY Morphine Sulfate 15 mg PO QID PRN PRN Reason: Pain rOPINIRole HCL 0.5 mg PO BID ALPRAZolam [Xanax] 0.25 mg PO Q6HR PRN PRN Reason: Anxiety Budesonide-Formot 160-4.5 Mcg [Symbicort 160-4.5 Mcg Inhaler] 2 puff INHALATION BID #1 inhaler Levothyroxine Sodium [Synthroid] 100 mcg PO DAILY Nitroglycerin Extended Release [Nitro-Bid] 6.5 mg PO BID Nystatin 100,000Unit/gm Cream [Mycostatin Cream] SUMAtriptan SUCCINATE [Imitrex] 100 mg PO BID Discharge Medication List Lisinopril [Zestril] 10 mg PO DAILY 09/19/15 [History] Potassium Chloride [Klor-Con Sprinkle] 10 meq PO DAILY 09/19/15 [History] ALPRAZolam [Xanax] 0.25 mg PO Q6HR PRN 06/20/18 [History] Folic Acid 1 mg PO DAILY 06/20/18 [History] Gabapentin [Neurontin] 300 mg PO HS 06/20/18 [History] Morphine Sulfate 15 mg PO QID PRN 06/20/18 [History] Nitroglycerin 0.4 mg SL Q5M PRN 06/20/18 [History] rOPINIRole HCL 0.5 mg PO BID 06/20/18 [History] Budesonide-Formot 160-4.5 Mcg [Symbicort 160-4.5 Mcg Inhaler] 2 puff INHALATION BID #1 inhaler 06/21/18 [Rx] Levothyroxine Sodium [Synthroid] 100 mcg PO DAILY 09/16/18 [History] Nitroglycerin Extended Release [Nitro-Bid] 6.5 mg PO BID 09/16/18 [History] Nystatin 100,000Unit/gm Cream [Mycostatin Cream] 09/16/18 [History] SUMAtriptan SUCCINATE [Imitrex] 100 mg PO BID 09/16/18 [History] Follow up Appointment(s)/Referral(s): Dustin Quevedo MD [Primary Care Provider] - 1-2 days
[2018-09-17 15:33] VITALS: BP 89/46
[2018-09-17] MEDS ORDERED: methylPREDNISolone SOD SUCCI 40 MG/ML 1 ML VIAL IV SCH (21:00)
--- NOTE | 2018-09-18 08:54 | EEG ---
ELECTROENCEPHALOGRAM REPORT DATE OF SERVICE: 09/16/2018 REASON FOR TESTING: Altered mental status and seizures. DESCRIPTION OF THE PROCEDURE: This EEG was performed using a 21 channel digital electroencephalograph, following international 10-20 system. DESCRIPTION OF THE RECORDING: From the beginning of the tracing, there appears to be burst suppression activity and this is seen pretty much throughout the tracing. Photic stimulation was performed with no driving response seen. Hyperventilation was not performed. IMPRESSION: This EEG is significantly abnormal as there is burst suppression activity seen throughout the tracing. This is consistent with severe brain injury. Given the patient's history, this is likely anoxic brain injury. Burst suppression activity indicates a very poor prognosis. Clinical correlation is recommended. MMODL / IJN: [id number] /
== END 2018-09-17 15:36 | disposition short-term general hospital (02) | DRG 208 ==
LOC: EC 20:23 → 2SICU 22:03
PROVIDERS: ADMIT Internal Medicine; ATTEND Internal Medicine
PROC: 5A1945Z Respiratory Ventilation, 24-96 Consecutive Hours (ICD-10-PCS; principal; 2018-09-15)
PROC: 0BH17EZ Insertion of Endotracheal Airway into Trachea, Via Natural or Artificial Opening (ICD-10-PCS; 2018-09-15)
PROC: 02HV33Z Insertion of Infusion Device into Superior Vena Cava, Percutaneous Approach (ICD-10-PCS; 2018-09-15)
PROC: 5A12012 Performance of Cardiac Output, Single, Manual (ICD-10-PCS; 2018-09-15)
DX: J96.01 Acute respiratory failure with hypoxia (principal); I46.9 Cardiac arrest, cause unspecified; G93.1 Anoxic brain damage, not elsewhere classified; I50.30 Unspecified diastolic (congestive) heart failure; J44.1 Chronic obstructive pulmonary disease with (acute) exacerbation; Z68.43 Body mass index [BMI] 50.0-59.9, adult; J96.02 Acute respiratory failure with hypercapnia; E03.9 Hypothyroidism, unspecified; E66.01 Morbid (severe) obesity due to excess calories; E78.5 Hyperlipidemia, unspecified; F17.200 Nicotine dependence, unspecified, uncomplicated; F32.9 Major depressive disorder, single episode, unspecified; G25.3 Myoclonus; I11.0 Hypertensive heart disease with heart failure; R56.9 Unspecified convulsions; Z79.51 Long term (current) use of inhaled steroids; Z79.899 Other long term (current) drug therapy; Z82.49 Family history of ischemic heart disease and other diseases of the circulatory system; Z79.52 Long term (current) use of systemic steroids; Z79.82 Long term (current) use of aspirin; Z79.3 Long term (current) use of hormonal contraceptives; Z81.1 Family history of alcohol abuse and dependence; Z84.1 Family history of disorders of kidney and ureter; E87.6 Hypokalemia; D35.2 Benign neoplasm of pituitary gland; Z09 Encounter for follow-up examination after completed treatment for conditions other than malignant neoplasm; Z88.0 Allergy status to penicillin; I44.4 Left anterior fascicular block
CPT/HCPCS: 31500; 36415; 36556; 36600; 70450; 71045; 71275; 80048; 80053; 80306; 81001; 82024; 82533; 82550; 82553; 82670; 82805; 83001; 83002; 83735; 83880; 84100; 84132; 84146; 84443; 84484; 85025; 85610; 85730; 87070; 87086; 87205; 92950; 93005; 93306; 93970; 94002; 94003; 94640; 95816; 96365; 96366; 96375; 99291